=== PATIENT | female | born 1965 | race African-American/Black ===

== ENCOUNTER 2017-08-28 13:08 | Emergency (ER) | payer MEDICARE, MEDICAID ==
[2017-08-28] MEDS ORDERED: hydrALAZINE 20 MG/ML VIAL ONE (14:05)
[2017-08-28] MEDS ORDERED: cloNIDine 0.1 MG TAB ONE (14:06)
--- NOTE | 2017-08-28 15:17 | RAD ---
PORTABLE CHEST 1 VIEW: Date: 08/28/17 Time: 1424 hours HISTORY: Cough. FINDINGS: Comparison made with exam of 02/07/15. The heart size is borderline. There is continued elevation of the right hemidiaphragm. The lungs are well expanded without focal areas of consolidation, pneumothorax, juan francisco pulmonary edema, or pleural e ffusions. A left humeral head prosthesis is present. IMPRESSION: No acute process. POS: [facility]
== END 2017-08-28 16:30 | disposition home or self-care (01) ==
LOC: ERS 13:08
DX: J20.9 Acute bronchitis, unspecified (principal); E11.9 Type 2 diabetes mellitus without complications; K21.9 Gastro-esophageal reflux disease without esophagitis; G47.30 Sleep apnea, unspecified; I25.10 Atherosclerotic heart disease of native coronary artery without angina pectoris; I11.0 Hypertensive heart disease with heart failure; I50.9 Heart failure, unspecified; F32.9 Major depressive disorder, single episode, unspecified
CPT/HCPCS: 71045; 94640; J0360; J7620

== ENCOUNTER 2018-09-05 14:49 | Inpatient (IN) | payer MEDICARE, MEDICAID ==
[~2018-09-05 14:49] MED LIST: ISOVUE-370 76%-LOCM 1 ML ONE
[2018-09-05 15:22] LABS: #Basophils 0.1 thou/uL (0.0-0.2); #Eosinphils 0.1 thou/uL (0.0-0.7); #Lymphocytes 2.8 thou/uL (1.20-3.40); #Monocytes 0.3 thou/uL (0.11-0.59); #Neutrophils 4.5 thou/uL (1.40-6.50); %Basophils 1.8 % (0.0-1.0); %Eosinophils 1.6 % (0.0-10.0); %Lymphocytes 35.6 % (21.0-51.0); %Monocytes 4.3 % (0.0-10.0); %Neutrophils 56.7 % (42.0-75.0); Hemoglobin 12.9 g/dL (12.0-16.0); Mean Corpuscular HGB CONC 32.5 g/dL (32.0-36.0); Mean Corpuscular Hemoglobin 29.1 pg (27.0-31.0); Mean Corpuscular Volume 89.6 fL (78.0-98.0); Mean Platelet Volume 8.1 fL (7.4-10.4); Platelet Count 346 thou/uL (130-400); RBC Distribution Width 12.3 % (11.5-14.5); Red Blood Cell (RBC) Count 4.44 mill/uL (4.20-5.40); White Blood Cell (WBC) Count 7.9 thou/uL (4.8-10.8)
[2018-09-05 15:44] LABS: ALT (SGPT) 19 U/L (8-55); AST (SGOT) 18 U/L (5-34); Albumin 3.9 g/dL (3.5-5.0); Alkaline Phosphatase 94 U/L (40-150); Anion Gap 11 mmol/L (10-20); BUN (Urea Nitrogen) 14 mg/dL (9.8-20.1); Bilirubin, Total 0.4 mg/dL (0.2-1.2); CK (CPK) 302 U/L (29-168); Calc. Creatinine Clearance 0 mL/min (70-130); Calcium 9.8 mg/dL (7.8-10.44); Carbon Dioxide 29 mmol/L (22-29); Chloride 102 mmol/L (98-107); Estimated GFR-MDRD 51; Globulin 4.9 g/dL (2.4-3.5); Glucose 110 mg/dL (70-105); Potassium 3.7 mmol/L (3.5-5.1); Protein, Total 8.8 g/dL (6.0-8.3); Sodium 138 mmol/L (136-145)
[2018-09-05] MEDS ORDERED: Nitroglycerin 0.4 MG TAB 1 EACH ONE ×2 (15:58→16:02)
[2018-09-05] MEDS ORDERED: Furosemide 20 MG/2 ML VIAL ONE (15:58)
[2018-09-05] MEDS ORDERED: Aspirin Chewable 81 MG TAB ONE (15:58)
--- NOTE | 2018-09-05 16:05 | CT ---
NONCONTRAST CT HEAD: 09/05/18 HISTORY: Bilateral blurry vision. COMPARISON: None available. FINDINGS: There is no evidence of a hemorrhage, acute infarction, mass effect, or midline shift. Ventricular sy stem is normal in size, shape and position. The visualized paranasal sinuses and mastoid air cells ar e clear. Calvarial structures are intact. IMPRESSION: No acute intracranial abnormality demonstrated. POS: [facility]
--- NOTE | 2018-09-05 16:07 | RAD ---
PORTABLE AP CHEST X-RAY: 09/05/18 HISTORY: Sharp left sided chest pain, blurry vision, elevated blood pressure. COMPARISON: 08/28/17. FINDINGS: The cardiac silhouette and pulmonary vasculature are within normal limits. The lungs are clear. Vascu lar calcifications seen in the aortic arch. There is partial visualization of a left humeral prosthes is. Right glenohumeral osteoarthropathy is again present. There has been no interval change from the prior exam. IMPRESSION: No acute cardiopulmonary process. POS: [facility]
--- NOTE | 2018-09-05 18:29 | CT ---
CT PULMONARY ANGIOGRAM WITH IV CONTRAST AND 3D POSTPROCESSING 09/05/18 HISTORY: Left sided chest pain, elevated D-dimer. FINDINGS: No filling defects are seen in the pulmonary artery vasculature to suggest pulmonary embolism. No tho racic aortic aneurysm or dissection is seen. No pleural or pericardial effusions are identified. No p neumothoraces, lobar consolidation or lung masses are identified. There are degenerative changes in t he spine. IMPRESSION: No CT evidence of pulmonary embolism. POS: [facility]
--- NOTE | 2018-09-05 18:49 | PDOC.FPRHP ---
- History of Present Illness Chief Complaint: Chest pain History of Present Illness: 52 yo F with PMH of CHF, migraines, DM2, morbid obesity, MARIAA, anxiety, GERD and HTN presents for high blood pressure and sharp substernal chest pain that radiated to her left chest for just a few seconds. Pain started today while she was lying down, she reports she was massaging her chest to help distract the pain, and reports her "face felt funny" for about 5 minutes. She reports she has had SOB for past 4 days, since her clinic visit. Her SOB is worse with lying flat, not improved by her CPAP (which makes her feel claustraphobic), and with exertion. Because of chronic back pain, she has been laying in her bed all day, no recent surgery. She has been recording her blood pressures at home, and they have been elevated up to 211/165, so she decided to come in to the hospital. She has had double vision for past 6 days, states that it has been getting worse over past 6 months. She also complains of swelling in her eyelids that is new, and chronic frontal and temporal headaches with nausea and vomiting x1 that she has had more frequently over the past 3 days. She also states she has eye pain and chronic eye watering lately. She has a family history of CHF in her son, mother, father, and sister; Family history of "blood clot" in mother's leg and her son's arm. Her son of CHF a few years ago, and thinking of him increases her anxiety. In the ED, her BP was elevated to 200s/100s, with pulse in 100s. She received nitrox3, which improved her blood pressure to 130/80. CTA chest neg for PE, EKG normal, trop neg. CXR wnl. She also received lasix as there was concern for CHF , however BNP returned normal. - Allergies/Adverse Reactions Allergies Allergy/AdvReac Type Severity Reaction Status Date / Time No Known Drug Allergies Allergy Verified 09/05/18 19:48 - Home Medications Medication Instructions Recorded Confirmed Type Allopurinol 10 mg PO DAILY 09/05/18 09/05/18 History Amlodipine [Norvasc] 10 mg PO DAILY 09/05/18 09/05/18 History Atorvastatin Calcium 40 mg PO HS 09/05/18 09/05/18 History Carvedilol 37.5 mg PO BID 09/05/18 09/05/18 History Chlorthalidone 50 mg PO DAILY 09/05/18 09/05/18 History Ergocalciferol (Vitamin D2) 1.25 mg PO SEEPHYS 09/05/18 09/05/18 History [Vitamin D2] Esomeprazole Magnesium [Nexium] 40 mg PO QAM-WM 09/05/18 09/05/18 History Gabapentin 600 mg PO TID 09/05/18 09/05/18 History Minoxidil 10 mg PO DAILY 09/05/18 09/05/18 History Spironolactone 50 mg PO DAILY 09/05/18 09/05/18 History Venlafaxine HCl [Effexor XR] 150 mg PO HS 09/05/18 09/05/18 History busPIRone HCl [Buspirone HCl] 15 mg PO TID 09/05/18 09/05/18 History cloNIDine HCl 0.3 mg PO HS 09/05/18 09/05/18 History hydrALAZINE [Apresoline] 25 mg PO TID 09/05/18 09/05/18 History - History PMHx: CHF, migraines, DM2, morbid obesity, MARIAA, depression and anxiety, GERD, sciatica, HTN, CAD, chronic back pain. Stress test in 2017 she reports as normal. PSHx: bilat knee replacements, partial colectomy, appendectomy, diverticulitis, shoulder arthroplasty FHx: kidney failure - son DVT in mother, "blood clot in arm" of son CHF - son, mother, father, sister Social: denies tobacco, alcohol, or drug use Allergies: NKDA - Review of Systems General: reports: fever/chills (reports feeling warm and needing fan at night), weight/appetite/sleep changes (decreased appetite). denies: night sweats Eyes: reports: eye pain, vision changes ENT: denies: nasal congestion, rhinorrhea Respiratory: reports: cough, shortness of breath. denies: congestion Cardiovascular: reports: chest pain, palpitation, orthopnea. denies: edema Gastrointestinal: reports: nausea, vomiting, constipation. denies: diarrhea, abdominal pain, GI bleeding Genitourinary: reports: incontinence, polyuria. denies: dysuria Skin: reports: rashes (no new rashes, but reports dark skin on neck) Musculoskeletal: reports: stiffness (back), arthritis/arthralgias (in her back) Neurological: reports: numbness (rt hand, intermittent). denies: weakness Psychological: reports: anxiety, depression - Vital signs BP: [129/82] HR: [89] RR: [20] Tmax: [98.3] Pox: [95]% on [RA] Wt: [136 kg] - Physical Exam Constitutional: NAD, awake, alert and oriented HEENT: normocephalic and atraumatic, PERRLA, conjunctiva clear, grossly normal hearing, MMM -HEENT: small soft mobile masses bilat on upper eyelids Neck: supple, trachea midline, no LAD, other (cervical LAD) Chest: other (tender to palpation over sternum and left chest) Heart: RRR, normal S1/S2, no murmurs/rubs/gallops Lungs: CTAB, no respiratory distress, good air movement, no rales/rhonchi Abdomen: soft, non-tender, bowel sounds present, no masses/distention Musculoskeletal: normal structure, normal tone -Musculoskeletal: calves tender to palpation bilat Neurological: no focal deficit, CN II-XII intact Skin: no rash/lesions, good turgor Heme/Lymphatic: no unusual bruising or bleeding, no petechia Psychiatric: normal mood and affect, good judgment and insight, intact recent and remote memory FMR H&P: Results - Labs Result Diagrams: 09/05/18 15:03 09/06/18 04:51 Lab results: WBC 7.9 thou/uL (4.8-10.8) 09/05/18 15:03 Hgb 12.9 g/dL (12.0-16.0) 09/05/18 15:03 Hct 39.8 % (36.0-47.0) 09/05/18 15:03 MCV 89.6 fL (78.0-98.0) 09/05/18 15:03 Plt Count 346 thou/uL (130-400) 09/05/18 15:03 Neutrophils % 56.7 % (42.0-75.0) 09/05/18 15:03 Sodium 138 mmol/L (136-145) 09/05/18 15:03 Potassium 3.7 mmol/L (3.5-5.1) 09/05/18 15:03 Chloride 102 mmol/L (98-107) 09/05/18 15:03 Carbon Dioxide 29 mmol/L (22-29) 09/05/18 15:03 BUN 14 mg/dL (9.8-20.1) 09/05/18 15:03 Creatinine 1.31 mg/dL (0.6-1.1) H 09/05/18 15:03 Glucose 110 mg/dL (70-105) H 09/05/18 15:03 Calcium 9.8 mg/dL (7.8-10.44) 09/05/18 15:03 Total Bilirubin 0.4 mg/dL (0.2-1.2) 09/05/18 15:03 AST 18 U/L (5-34) 09/05/18 15:03 ALT 19 U/L (8-55) 09/05/18 15:03 Alkaline Phosphatase 94 U/L (40-150) 09/05/18 15:03 Creatine Kinase 302 U/L (29-168) H 09/05/18 15:03 B-Natriuretic Peptide 13.7 pg/mL (0-100) 09/05/18 15:38 Serum Total Protein 8.8 g/dL (6.0-8.3) H 09/05/18 15:03 Albumin 3.9 g/dL (3.5-5.0) 09/05/18 15:03 - EKG Interpretation EKG: NSR - Radiology Interpretation CT scan - head Status: image reviewed by me, report reviewed by me Additional comment: neg for acute abnormalities Chest x-ray Status: image reviewed by me, report reviewed by me Additional comment: Neg for acute cardiopulmonary process CT scan - chest Status: image reviewed by me, report reviewed by me Additional comment: Negative for PE FMR H&P: A/P - Problem List (1) Atypical chest pain Current Visit: Yes Status: Acute Code(s): R07.89 - OTHER CHEST PAIN (2) LALO (acute kidney injury) Current Visit: Yes Status: Acute Code(s): N17.9 - ACUTE KIDNEY FAILURE, UNSPECIFIED (3) Elevated CK Current Visit: Yes Status: Acute (4) HTN (hypertension) Current Visit: Yes Status: Chronic Code(s): I10 - ESSENTIAL (PRIMARY) HYPERTENSION (5) Hx of chronic heart failure Current Visit: Yes Status: Chronic Code(s): Z86.79 - PERSONAL HISTORY OF OTHER DISEASES OF THE CIRCULATORY SYSTEM (6) DM2 (diabetes mellitus, type 2) Current Visit: Yes Status: Acute (7) Morbid obesity Current Visit: Yes Status: Chronic Code(s): E66.01 - MORBID (SEVERE) OBESITY DUE TO EXCESS CALORIES (8) MARIAA (obstructive sleep apnea) Current Visit: Yes Status: Chronic Code(s): G47.33 - OBSTRUCTIVE SLEEP APNEA (ADULT) (PEDIATRIC) (9) GERD (gastroesophageal reflux disease) Current Visit: Yes Status: Chronic Code(s): K21.9 - GASTRO-ESOPHAGEAL REFLUX DISEASE WITHOUT ESOPHAGITIS (10) CAD (coronary artery disease) Current Visit: Yes Status: Chronic Code(s): I25.10 - ATHSCL HEART DISEASE OF [place] CORONARY ARTERY W/O ANG PCTRS (11) Chronic back pain Current Visit: Yes Status: Chronic Code(s): M54.9 - DORSALGIA, UNSPECIFIED; G89.29 - OTHER CHRONIC PAIN (12) Migraines Current Visit: Yes Status: Chronic Code(s): G43.909 - MIGRAINE, UNSP, NOT INTRACTABLE, WITHOUT STATUS MIGRAINOSUS (13) Depression Current Visit: Yes Status: Chronic Code(s): F32.9 - MAJOR DEPRESSIVE DISORDER, SINGLE EPISODE, UNSPECIFIED (14) Anxiety Current Visit: Yes Status: Chronic Code(s): F41.9 - ANXIETY DISORDER, UNSPECIFIED - Plan 52 yo F with atypical chest pain Atypical Chest pain -ACS vs costochondritis vs anxiety vs GERD vs pickwickian syndrome -Pain is reproducible, Heart score 3 -Does have exertional SOB and orthopnea, consider pickwickian syndrome -CT head normal -CTA chest neg for PE, CXR and EKG normal -Admit to tele obs for stress in the AM. Pt reports normal stress in 2017 but we do not have those records -NPO at midnight -hold beta blockers -TSH -Lipid panel LALO -Cr 1.3 - IVF of 140 LR CK elevated -300s -IVF as above HTN - Her headaches may be 2/2 to her HTN - PRN hydralazine - continue home BP medicines CHF -BNP 13 -No signs of fluid overload -continue home medication DM2 -continue home meds -SSI with ACHS Morbid obesity -consider pickwickian as a possible cause of her SOB MARIAA -cpap at night GERD -famotidine PRN CAD -continue home atorvastatin Chronic back pain and sciatica -aware -Do not give norco at this time Migraines -aware Depression and anxiety Code status: full code DVT ppx: lovenox Dispo: admit to tele obs GI PPx: famotidine PCP: Fransisca FMR H&P: Upper Level - Pertinent history 52AAF p/w chest pain, shortness of breath, and double vision. Reports two episodes of left sided chest pain that was sharp in nature and began while resting. She denies n/v or diaphoresis associated with these episodes, but endorses a flushed feeling all over coinciding with the chest pain. She was worried that she may be having a stroke since her face felt "hot." BP's at home have been grossly elevated so she thought it best to come in and get checked out. She denies any motor deficits or loss in sensation. Patient also c/o SOB, but this does not appear to coincide with her CP. It is exacerbated with lying flat, which she has been doing most of everyday due to pain from spinal stenosis. Also, c/o constant double vision for roughly one week. This is a chronic problem that has never been addressed, per patient. Patient has a supposed history of chronic pain that was previously being treated with [place] by her former PCP. She has been seen in the [facility] twice since the beginning of the year, and reports being told very rudely that we will not be refilling her opiate. She had to be redirected multiple times back to her chief complaint during our interview because she kept talking about [place]. ED: nitro SL x 3, lasix 20mg IV, ASA - Pertinent findings hypertensive to 200/100 that corrected with nitro SL CXR: normal CT brain: negative CTA chest: negative BNP: 13 trop: negative D-Dimer: 1.3 Cr: 1.31 Gen: A&Ox3 CV: RRR, anterior chest wall pain with palpation Pulm: CTA-B Neuro: CNII-XII intact - Plan Date/Time: 09/05/181848 I, Pieter Portillo, have evaluated this patient and agree with findings/plan as outlined by international student counselor resident. Pertinent changes/additions are listed here. Atypical chest pain: admit to tele/obs for stress test in AM. Heart score of 3- 4. Pain controlled with nitro and has not recurred since presenting to ER. EKG is normal at this time. Continue to trend troponins and further risk stratify with FLP and TSH. Hypertension: drastic improvement with 3 doses of SL nitro. Patient endorses taking all of her medications as prescribed. With 4+ anti-hypertensive medications on med list, we will start secondary HTN w/u with bilateral renal artery US. Will try to avoid clonidine for PRN control. LALO: unknown what her baseline is but Cr elevated. Will continue IVF and expect modest rise in creatinine 2/2 to lasix given in ED. Addendum - Attending - Attending Attestation Date/Time: 09/06/18 3252 I personally evaluated the patient and discussed the management with Dr. Portillo/ Kirstin I agree with the History, Examination, Assessment and Plan documented above with any addition or exceptions noted below.Vertical diplopia rec MRI brain include orbit TFT's, need secondary HTN work up and heart disease stratification with stress testing.
[2018-09-05] MEDS ORDERED: Acetaminophen 325 MG TAB PO PRN ×2 (19:37→19:50)
[2018-09-05 19:39] VITALS: BMI 55.9
[2018-09-05] MEDS ORDERED: Calcium Carbonate 500 MG ChewTAB PO PRN (19:50)
[2018-09-05] MEDS ORDERED: Ondansetron PF 4 MG/2 ML Vial IVP PRN (19:50)
[2018-09-05] MEDS ORDERED: Ondansetron ODT 4 MG TAB PO PRN (19:50)
[2018-09-05] MEDS ORDERED: Enoxaparin Sodium 40 MG/0.4 ML SYRINGE SC SCH (20:00)
[2018-09-05] MEDS: Famotidine 20 MG TAB PO SCH (20:28)
[2018-09-05] MEDS ORDERED: Venlafaxine HCl XR 150 MG CAP PO SCH (22:00)
[2018-09-05] MEDS ORDERED: Gabapentin 300 MG CAP PO SCH (22:00)
[2018-09-05] MEDS ORDERED: cloNIDine 0.3 MG TAB PO SCH (22:00)
[2018-09-05] MEDS ORDERED: busPIRone HCl 10 MG TAB PO SCH (22:00)
[2018-09-05] MEDS ORDERED: Atorvastatin Calcium 40 MG TAB PO SCH (22:00)
[2018-09-05] MEDS ORDERED: Carvedilol 25 MG TAB PO SCH (22:00)
[2018-09-05] MEDS ORDERED: hydrALAZINE 20 MG/ML VIAL SLOW IVP PRN (23:36)
[2018-09-05] MEDS ORDERED: HumaLOG 300 UNITS/3 ML VIAL SC PRN (23:41)
[2018-09-05] MEDS ORDERED: Dextrose 5% in Water 1,000 ML IV PRN (23:41)
[2018-09-05] MEDS ORDERED: Dextrose 50% Abboject 50 ML SYRINGE SLOW IVP PRN (23:41)
[2018-09-06] MEDS: Lactated Ringer's 1,000 ML IV SCH ×3 (00:23→17:28)
[2018-09-06] MEDS: hydrOXYzine 25 MG TAB PO SCH ×4 (04:02→23:44)
--- NOTE | 2018-09-06 06:34 | PDOC.FM ---
- Subjective Subjective: Still having blurry vision. Chest pain improved, feels SOB mildly, did not wear CPAP last night. - Objective MAR Reviewed: Yes Vital Signs & Weight: Vital Signs (12 hours) Temp Pulse Resp BP BP Pulse Ox 09/06/18 04:00 97.3 F L 87 17 133/73 94 L 09/06/18 03:36 97.3 F L 87 15 126/77 94 L 09/05/18 23:35 98 F 88 18 113/65 93 L 09/05/18 19:30 98.2 F 82 20 130/70 93 L Weight Weight 138.618 kg I&O: 09/04/18 09/05/18 09/06/18 06:59 06:59 06:59 Intake Total 1400 Balance 1400 Result Diagrams: 09/05/18 15:03 09/06/18 04:51 Phys Exam - Physical Examination Constitutional: NAD obese body habitus HEENT: PERRLA Respiratory: no wheezing, clear to auscultation bilateral Cardiovascular: RRR, no significant murmur Gastrointestinal: soft, non-tender Neurological: non-focal, moves all 4 limbs Psychiatric: A&O x 3 Deviation from normal: anxious Dx/Plan (1) LALO (acute kidney injury) Code(s): N17.9 - ACUTE KIDNEY FAILURE, UNSPECIFIED Status: Acute (2) Atypical chest pain Code(s): R07.89 - OTHER CHEST PAIN Status: Acute (3) DM2 (diabetes mellitus, type 2) Status: Acute (4) Elevated CK Status: Acute (5) Anxiety Code(s): F41.9 - ANXIETY DISORDER, UNSPECIFIED Status: Chronic (6) CAD (coronary artery disease) Code(s): I25.10 - ATHSCL HEART DISEASE OF [place] CORONARY ARTERY W/O ANG PCTRS Status: Chronic (7) HTN (hypertension) Code(s): I10 - ESSENTIAL (PRIMARY) HYPERTENSION Status: Chronic (8) MARIAA (obstructive sleep apnea) Code(s): G47.33 - OBSTRUCTIVE SLEEP APNEA (ADULT) (PEDIATRIC) Status: Chronic - Plan Plan: 52 yo F with atypical chest pain Atypical Chest pain with SOB, ACS rule out -Ddx: ACS vs. chostocondritis vs. pickwickian syndrome vs. anxiety induced vs. hypertensive emergency -Cardiac enzymes negative X3, CTA neg for PE, BNP nml -Heart score 3, NST this morning this AM to rule out ACS -Pt reports normal stress in 2017 but we do not have those records -Pending TSH, lipid panel, Mg, Phos to risk stratify -Continue hypertensives meds LALO vs. CKD -Cr 1.3, baseline undetermined -mIVF of 140 LR CK elevated -300s -IVF as above -pending AM CPK HTN - Her headaches may be 2/2 to her HTN - PRN hydralazine - continue home BP medicines CHF -BNP 13 -No signs of fluid overload -continue home medication DM2 -continue home meds -SSI with ACHS Morbid obesity -consider pickwickian as a possible cause of her SOB MARIAA -cpap at night GERD -famotidine PRN CAD -continue home atorvastatin Chronic back pain and sciatica -aware -Do not give norco at this time Migraines -aware Depression and anxiety -home buspar and venlafaxine Code status: full code DVT ppx: lovenox GI PPx: famotidine Dispo: Chest pain-NST to r/o ACS, Eccho. Diplopia- MRI brain, ESR, RPR, HIV. LALO -likely from overdiuresis, recheck AM BMP. After NST oral rehydration to help with LALO, no fluids for now due to heart failure. Monitor fluid status, can give IV lasix PRN. Addendum - Attending - Attending Attestation Date/Time: 09/07/18 0297 I personally evaluated the patient and discussed the management with Dr. I agree with the History, Examination, Assessment and Plan documented above with any addition or exceptions noted below.
[2018-09-06 06:40] LABS: Anion Gap 11 mmol/L (10-20); BUN (Urea Nitrogen) 15 mg/dL (9.8-20.1); Calc. Creatinine Clearance 105 mL/min (70-130); Calcium 9.8 mg/dL (7.8-10.44); Carbon Dioxide 30 mmol/L (22-29); Cardiac Risk 5.4 (Less than 4.5); Chloride 102 mmol/L (98-107); Cholesterol 172 mg/dl (< 200 Desired); Estimated GFR-MDRD 50; Glucose 95 mg/dL (70-105); HDL Cholesterol 32 mg/dL (>60 Neg Risk); LDL Cholesterol, Calculated 105 mg/dL; Potassium 3.6 mmol/L (3.5-5.1); Sodium 139 mmol/L (136-145); Triglycerides 173 mg/dL (Less than 150)
[2018-09-06 06:52] LABS: Hemoglobin A1c 5.7 % (4.0-6.0)
[2018-09-06] MEDS ORDERED: busPIRone HCl 10 MG TAB PO SCH (09:00)
[2018-09-06] MEDS ORDERED: Minoxidil 10 MG TAB PO SCH (09:00)
[2018-09-06] MEDS ORDERED: Gabapentin 300 MG CAP PO SCH (09:00)
[2018-09-06] MEDS ORDERED: Carvedilol 25 MG TAB PO SCH (09:00)
[2018-09-06] MEDS: Famotidine 20 MG TAB PO SCH ×2 (09:13→21:08)
[2018-09-06] MEDS: Spironolactone 25 MG TAB PO SCH (09:13)
[2018-09-06] MEDS: Amlodipine 10 MG TAB PO SCH (09:13)
[2018-09-06] MEDS: Gabapentin 300 MG CAP PO SCH ×3 (09:13→21:07)
[2018-09-06] MEDS: hydrALAZINE 25 MG TAB PO SCH ×3 (09:14→21:07)
[2018-09-06] MEDS: busPIRone HCl 5 MG TAB PO SCH ×3 (09:14→21:06)
[2018-09-06] MEDS: Allopurinol 100 MG TAB PO SCH (09:14)
[2018-09-06] MEDS: Enoxaparin Sodium 40 MG/0.4 ML SYRINGE SC SCH (09:15)
--- NOTE | 2018-09-06 09:52 | ULT ---
RENAL SONOGRAM WITH RENAL ARTERY DOPPLER EVALUATION: Date: 09/06/18 HISTORY: Uncontrolled hypertension. FINDINGS: Kidneys demonstrate a normal sonographic appearance bilaterally without evidence of hydronephrosis, m ass, or renal calculus. No renal cortical thinning is identified. The right kidney measures 10.0 cm x 4.4 cm. The left kidney measures 10.3 cm x 5.6 cm. The urinary bladder demonstrates a normal sonographic appearance. RENAL ARTERY DOPPLER EVALUATION WITH SPECTRAL ANALYSIS AND COLOR FLOW EVALUATION: The peak systolic velocity in the right renal artery is 45.3 cm/sec and in the left renal artery is 6 7.8 cm/sec, with a peak systolic velocity in the abdominal aorta of 66.1 cm/sec. The right renal artery:aorta ratio is 0.69, and on the left, the renal artery:aorta ratio is 1.03. A normal renal artery:aorta ratio is less than 3. Resistive index in right arcuate artery is 0.6, with resistive index in left renal arcuate artery of 0.59. Normal resistive indices are less than 0.7. IMPRESSION: 1. Normal appearing bilateral kidneys without evidence of hydronephrosis or renal cortical thinning. 2. Normal renal artery:aorta ratios, as well as normal resistive indices in the arcuate arteries jessica aterally. POS: [facility]
[2018-09-06 12:22] LABS: Syphilis Antibody Nonreactive (Nonreactive); Syphilis Antibody Index 0.06 S/CO (<1.00 Non-Reactive)
[2018-09-06 12:33] LABS: HIV (1/2) Antibody/Antigen Non-Reactive (NonReactive); HIV 1/2 INDEX 0.08 S/CO (<1.00)
[2018-09-06] MEDS ORDERED: cloNIDine 0.3 MG TAB PO SCH (21:00)
[2018-09-06] MEDS ORDERED: Atorvastatin Calcium 40 MG TAB PO SCH (21:00)
[2018-09-06] MEDS ORDERED: Venlafaxine HCl XR 150 MG CAP PO SCH (21:00)
[2018-09-06] MEDS: cloNIDine 0.3 MG TAB PO SCH (21:06)
[2018-09-06] MEDS: Atorvastatin Calcium 40 MG TAB PO SCH (21:08)
[2018-09-06] MEDS: Venlafaxine HCl XR 150 MG CAP PO SCH (21:08)
--- NOTE | 2018-09-06 22:14 | PDOC.EVN ---
Event Note - Event Note Event Note: residents page to come to pts room at approximately 2100 09/06 for questions by family member family member said she had some concerns about the care the pt is receiving here. including why she was started on 4-5 blood pressure medicines in the outpatient setting, what is going on with her heart, and why we are getting an MRI of the brain for diplopia when her major concern is her heart. Family member reports that there is a family hx of a "coronary artery fistula" for which she believes may be the cause of pts symptoms. It was conveyed that the medicine team is doing a full work up to evaluate for coronary ischemia, potential structural or ischemic defects in the brain causing diplopia, and that her kidneys have been evaluated via US, results reported. family member continued to be dissatisfied with answers and questioned care being received. asked for medical records of pt. She was informed she could speak with medical records regarding this when they opened in the morning.
[2018-09-06] MEDS ORDERED: Lactated Ringer's 1,000 ML IV SCH (22:28)
[2018-09-06 22:49] LABS: Bilirubin Negative (Negative); Blood, Urine Small (Negative); Clarity CLEAR (Clear); Glucose, Urine (Dipstick) Negative (Negative); Leukocyte Negative (Negative); Nitrite Negative (Negative); Protein, Urine (Dipstick) Negative (Neg-Trace); Specific Gravity, Urine 1.007 (1.002-1.036); pH, Urine 7.5 (5.0-9.0)
[2018-09-06] MEDS ORDERED: Preparation H HC 1% Cream 26 GM TUBE TOP PRN (22:49)
[2018-09-06 22:51] LABS: Bacteria/HPF None Seen HPF (None Seen); Hyaline Casts/LPF 0-3 HYALINE CAST LPF (0-3 Hyaline); Pathc Cast-AUWi Flag 0.29 (0-2.49); Squamous Epithelial 0-3 HPF (0-3); WBC/HPF 0-3 HPF (0-3)
[2018-09-06 22:52] LABS: Urine Culture Reflex No No
[2018-09-07 05:23] LABS: #Eosinphils 0.2 thou/uL (0.0-0.7); #Lymphocytes 2.1 thou/uL (1.20-3.40); #Monocytes 0.6 thou/uL (0.11-0.59); #Neutrophils 3.2 thou/uL (1.40-6.50); %Basophils 0.5 % (0.0-1.0); %Eosinophils 2.7 % (0.0-10.0); %Lymphocytes 34.6 % (21.0-51.0); %Neutrophils 52.3 % (42.0-75.0); Hemoglobin 12.7 g/dL (12.0-16.0); Mean Corpuscular HGB CONC 32.5 g/dL (32.0-36.0); Mean Corpuscular Hemoglobin 29.4 pg (27.0-31.0); Mean Corpuscular Volume 90.6 fL (78.0-98.0); Mean Platelet Volume 8.2 fL (7.4-10.4); Platelet Count 334 thou/uL (130-400); RBC Distribution Width 12.4 % (11.5-14.5); Red Blood Cell (RBC) Count 4.32 mill/uL (4.20-5.40); White Blood Cell (WBC) Count 6.1 thou/uL (4.8-10.8)
[2018-09-07 05:41] LABS: ALT (SGPT) 22 U/L (8-55); AST (SGOT) 21 U/L (5-34); Albumin 3.7 g/dL (3.5-5.0); Alkaline Phosphatase 101 U/L (40-150); Anion Gap 13 mmol/L (10-20); BUN (Urea Nitrogen) 15 mg/dL (9.8-20.1); Bilirubin, Total 0.4 mg/dL (0.2-1.2); Calc. Creatinine Clearance 103 mL/min (70-130); Calcium 9.7 mg/dL (7.8-10.44); Carbon Dioxide 28 mmol/L (22-29); Chloride 102 mmol/L (98-107); Estimated GFR-MDRD 50; Globulin 4.6 g/dL (2.4-3.5); Glucose 104 mg/dL (70-105); Potassium 3.8 mmol/L (3.5-5.1); Protein, Total 8.3 g/dL (6.0-8.3); Sodium 139 mmol/L (136-145)
[2018-09-07] MEDS: hydrOXYzine 25 MG TAB PO SCH ×4 (05:41→23:33)
--- NOTE | 2018-09-07 06:32 | PDOC.FM ---
- Subjective Subjective: Denies chest pain since admission. Endorses family hx of early ID's including her son at 28 years old and family history of cardio fistula?? She denies any blurry vision this morning. She refused the MRI if she has to be awake because she gets anxious/claustrophobic. - Objective MAR Reviewed: Yes Vital Signs & Weight: Vital Signs (12 hours) Temp Pulse Resp BP BP Pulse Ox 09/07/18 03:35 98.4 F 91 20 135/74 94 L 09/06/18 23:45 98.1 F 88 16 154/79 H 95 09/06/18 21:07 85 147/70 H 09/06/18 21:06 147/70 H 09/06/18 19:13 97.8 F 85 16 130/70 93 L Weight Weight 135.533 kg I&O: 09/05/18 09/06/18 09/07/18 06:59 06:59 06:59 Intake Total 1400 900 Output Total 300 Balance 1400 600 Result Diagrams: 09/07/18 04:34 09/07/18 04:34 Phys Exam - Physical Examination Constitutional: NAD Respiratory: no wheezing, no rales, clear to auscultation bilateral Cardiovascular: RRR, no significant murmur Gastrointestinal: soft, non-tender, no distention Musculoskeletal: no edema, pulses present Neurological: non-focal, normal sensation, moves all 4 limbs Psychiatric: normal affect, A&O x 3 Skin: no rash, normal turgor, cap refill <2 seconds Dx/Plan (1) Atypical chest pain Code(s): R07.89 - OTHER CHEST PAIN Status: Acute (2) LALO (acute kidney injury) Code(s): N17.9 - ACUTE KIDNEY FAILURE, UNSPECIFIED Status: Acute (3) DM2 (diabetes mellitus, type 2) Status: Chronic (4) Elevated CK Status: Acute (5) Anxiety Code(s): F41.9 - ANXIETY DISORDER, UNSPECIFIED Status: Chronic (6) CAD (coronary artery disease) Code(s): I25.10 - ATHSCL HEART DISEASE OF [place] CORONARY ARTERY W/O ANG PCTRS Status: Chronic (7) Chronic back pain Code(s): M54.9 - DORSALGIA, UNSPECIFIED; G89.29 - OTHER CHRONIC PAIN Status: Chronic (8) Depression Code(s): F32.9 - MAJOR DEPRESSIVE DISORDER, SINGLE EPISODE, UNSPECIFIED Status : Chronic (9) GERD (gastroesophageal reflux disease) Code(s): K21.9 - GASTRO-ESOPHAGEAL REFLUX DISEASE WITHOUT ESOPHAGITIS Status: Chronic (10) HTN (hypertension) Code(s): I10 - ESSENTIAL (PRIMARY) HYPERTENSION Status: Chronic (11) Hx of chronic heart failure Code(s): Z86.79 - PERSONAL HISTORY OF OTHER DISEASES OF THE CIRCULATORY SYSTEM Status: Chronic (12) Migraines Code(s): G43.909 - MIGRAINE, UNSP, NOT INTRACTABLE, WITHOUT STATUS MIGRAINOSUS Status: Chronic (13) Morbid obesity Code(s): E66.01 - MORBID (SEVERE) OBESITY DUE TO EXCESS CALORIES Status: Chronic (14) MARIAA (obstructive sleep apnea) Code(s): G47.33 - OBSTRUCTIVE SLEEP APNEA (ADULT) (PEDIATRIC) Status: Chronic - Plan Plan: 52 yo F admitted for atypical chest pain. Atypical Chest pain with SOB, ACS rule out -Ddx: ACS vs. chostocondritis -Cardiac enzymes negative X3, CTA neg for PE, BNP nml, EKG wnl -Heart score 3, NST pending -Pt reports normal stress in 2017 but we do not have those records -TSH wnl, ascvd risk 9.4%, will increase atorvastatin to 80mg daily Blurry vision- -resolved this morning -no neuro focal deficits, will hold off on MRI as pt does not want it without anesthesia and sx have resolved; blurry vision could have been due to hypertension or hyperglycemia, CT brain negative for acute process LALO vs. CKD -Cr 1.3, baseline undetermined -mIVF of 140 LR CK elevated -300s -IVF as above -pending AM CPK HTN - PRN hydralazine - continue home BP medicines CHF -BNP 13 -No signs of fluid overload -continue home medication DM2 -continue home meds -SSI with ACHS Morbid obesity -consider pickwickian as a possible cause of her SOB MARIAA -cpap at night GERD -famotidine PRN CAD -continue home atorvastatin Chronic back pain and sciatica -aware -Do not give norco at this time Migraines -aware Depression and anxiety -home buspar and venlafaxine Code status: full code DVT ppx: lovenox GI PPx: famotidine Dispo: pending stress test, ok to dc if wnl Addendum - Attending - Attending Attestation Date/Time: 09/07/18 4250 I personally evaluated the patient and discussed the management with Dr. Jurado I agree with the History, Examination, Assessment and Plan documented above with any addition or exceptions noted below. 52 yo female with multiple medical problems and significant family history presents for evaluation of chest pain. HD#2 Patient now without compliants. Chest pain has resolved. No vision changes. VS reviewed. Imaging reviewed. Labs reviewed. NAD. RRR. No murmurs. CTAB. No wheezing, crackles 1. Chest pain: Risk for cardiovascular etiology. Significant risk factors along with significant family history. Stress this AM. Awaiting results. ASA, beta marely, statin. Adjust home meds as needed. CPAP to continue when sleeping or napping and as needed. Vikas
[2018-09-07 07:00] LABS: Magnesium 1.6 mg/dL (1.6-2.6)
[2018-09-07 07:04] LABS: Phosphorus 4.6 mg/dL (2.3-4.7)
[2018-09-07] MEDS: Lactated Ringer's 1,000 ML IV SCH (07:52)
--- NOTE | 2018-09-07 08:36 | STRESS ---
Acquisition Time: 2018-09-06 11:51:31 Total Exercise Time: 00:04:00 Test Indications: CHEST PAIN Medications: Protocol: ADENOSINE Max HR: 123 BPM 74% of Pred: 166 BPM Max BP: 128/070 mmHG Max Work Load: 1.0 METS RESTING ECG: NORMAL SINUS RHYTHM AT 82 BPM SYMPTOMS: CHEST PAIN, FLORES, NAUSEA, HEADACHE APPROPRIATE BP RESPONSE FOR ADENOSINE ECTOPY: NONE ECG STRESS: NO SIGNIFICANT CHANGES INTERPRETATION: AWAIT NUCLEAR IMAGES FOR DEFINITIVE DIAGNOSIS Confirmed by XENIA VEGA ([id number]) on 09/07/2018 8:36:01 AM Referred By: Confirmed By:XENIA VEGA
[2018-09-07] MEDS: Allopurinol 100 MG TAB PO SCH (08:54)
[2018-09-07] MEDS: Spironolactone 25 MG TAB PO SCH (08:54)
[2018-09-07] MEDS: Amlodipine 10 MG TAB PO SCH (08:54)
[2018-09-07] MEDS: Famotidine 20 MG TAB PO SCH ×2 (08:55→21:16)
[2018-09-07] MEDS: Enoxaparin Sodium 40 MG/0.4 ML SYRINGE SC SCH (08:55)
[2018-09-07] MEDS: busPIRone HCl 5 MG TAB PO SCH ×3 (08:55→21:16)
[2018-09-07] MEDS: Gabapentin 300 MG CAP PO SCH ×3 (08:56→21:15)
[2018-09-07] MEDS: Minoxidil 10 MG TAB PO SCH (08:56)
[2018-09-07] MEDS: hydrALAZINE 25 MG TAB PO SCH ×3 (08:56→21:14)
[2018-09-07] MEDS ORDERED: Ergocalciferol 1.25 MG(50,000 UNITS) CAP PO SCH (09:00)
--- NOTE | 2018-09-07 15:19 | NM ---
CARDIAC SPECT: CLINICAL HISTORY: 52-year-old female with chest pain, hypertension, and CHF. TECHNIQUE: A myocardial perfusion scan was performed using the single isotope two day protocol with 32 mCi techn etium-99m sestamibi injected intravenously for both stress and rest images. Pharmacologic stress with Adenosine was monitored and interpreted by Dr. Christian. FINDINGS: Fairly homogeneous tracer distribution is seen in the myocardial segments on the rest images. The str ess images demonstrate mildly decreased tracer localization in the proximal inferolateral wall. GATED SPECT LVEF: 69%. WALL MOTION EXAM: Normal. IMPRESSION: Findings are suggestive of mild ischemia in the proximal inferolateral wall with complete reversibili ty. POS: TREVOR
[2018-09-07] MEDS ORDERED: Nitroglycerin 0.4 MG TAB (25 Tab Bottle) SL PRN (19:15)
[2018-09-07 20:02] LABS: Troponin I 0.016 ng/mL (< 0.028)
[2018-09-07] MEDS: Atorvastatin Calcium 40 MG TAB PO SCH ×2 (21:15→21:33)
[2018-09-07] MEDS: cloNIDine 0.3 MG TAB PO SCH (21:16)
[2018-09-07] MEDS: Venlafaxine HCl XR 150 MG CAP PO SCH (21:16)
[2018-09-08] MEDS: hydrOXYzine 25 MG TAB PO SCH ×3 (06:00→17:50)
[2018-09-08 06:15] LABS: Magnesium 1.6 mg/dL (1.6-2.6); Phosphorus 4.2 mg/dL (2.3-4.7)
--- NOTE | 2018-09-08 06:55 | PDOC.FM ---
- Subjective Subjective: Endorsed one episode of chest pain last night, but it resolved within a few minutes. She is anxious about the fact that her stress was abnormal. - Objective MAR Reviewed: Yes Vital Signs & Weight: Vital Signs (12 hours) Temp Pulse Resp BP BP Pulse Ox 09/08/18 06:27 95 09/08/18 03:38 96.1 F L 101 H 16 135/76 95 09/07/18 23:33 96 20 134/84 93 L 09/07/18 21:16 190/88 H 09/07/18 21:15 104 H 22 H 190/88 H 95 09/07/18 21:14 104 H 190/88 H 09/07/18 20:15 93 L 09/07/18 19:46 104 H 20 112/64 93 L 09/07/18 19:41 104 H 136/83 09/07/18 19:28 98.4 F 101 H 16 135/91 H 91 L Weight Weight 131.27 kg I&O: 09/06/18 09/07/18 09/08/18 06:59 06:59 06:59 Intake Total 1400 1620 1140 Output Total 300 Balance 1400 1320 1140 Result Diagrams: 09/07/18 04:34 09/09/18 05:59 Phys Exam - Physical Examination Constitutional: NAD HEENT: PERRLA, moist MMs Respiratory: no wheezing, no rales, clear to auscultation bilateral Cardiovascular: RRR, no significant murmur Gastrointestinal: soft, non-tender, no distention Musculoskeletal: no edema, pulses present Neurological: non-focal, normal sensation Psychiatric: normal affect, A&O x 3 Skin: no rash Dx/Plan (1) Atypical chest pain Code(s): R07.89 - OTHER CHEST PAIN Status: Acute (2) LALO (acute kidney injury) Code(s): N17.9 - ACUTE KIDNEY FAILURE, UNSPECIFIED Status: Acute (3) DM2 (diabetes mellitus, type 2) Status: Chronic (4) Elevated CK Status: Acute (5) Anxiety Code(s): F41.9 - ANXIETY DISORDER, UNSPECIFIED Status: Chronic (6) CAD (coronary artery disease) Code(s): I25.10 - ATHSCL HEART DISEASE OF [place] CORONARY ARTERY W/O ANG PCTRS Status: Chronic (7) Chronic back pain Code(s): M54.9 - DORSALGIA, UNSPECIFIED; G89.29 - OTHER CHRONIC PAIN Status: Chronic (8) Depression Code(s): F32.9 - MAJOR DEPRESSIVE DISORDER, SINGLE EPISODE, UNSPECIFIED Status : Chronic (9) GERD (gastroesophageal reflux disease) Code(s): K21.9 - GASTRO-ESOPHAGEAL REFLUX DISEASE WITHOUT ESOPHAGITIS Status: Chronic (10) HTN (hypertension) Code(s): I10 - ESSENTIAL (PRIMARY) HYPERTENSION Status: Chronic (11) Hx of chronic heart failure Code(s): Z86.79 - PERSONAL HISTORY OF OTHER DISEASES OF THE CIRCULATORY SYSTEM Status: Chronic (12) Migraines Code(s): G43.909 - MIGRAINE, UNSP, NOT INTRACTABLE, WITHOUT STATUS MIGRAINOSUS Status: Chronic (13) Morbid obesity Code(s): E66.01 - MORBID (SEVERE) OBESITY DUE TO EXCESS CALORIES Status: Chronic (14) MARIAA (obstructive sleep apnea) Code(s): G47.33 - OBSTRUCTIVE SLEEP APNEA (ADULT) (PEDIATRIC) Status: Chronic - Plan Plan: 52 yo F admitted for atypical chest pain. Atypical Chest pain -stress test with reversible ischemia -Heart score 3, NST showed reversible ischemia -TSH wnl, ascvd risk 9.4%, will increase atorvastatin to 80mg daily -NPO since midnight, cards consulted, appreciate recommendations Left calf tenderness, swelling- -will order US -increased lovenox dose d/t bmi Blurry vision- -endorsed vertical diplopia this morning, recommend optho outpatient, CT head negative -no neuro focal deficits, will hold off on MRI as pt does not want it without anesthesia LALO vs. CKD -Cr 1.3, baseline undetermined HTN - PRN hydralazine - continue home BP medicines CHF -BNP 13 -No signs of fluid overload -continue home medication DM2 -continue home meds -SSI with ACHS Morbid obesity -consider pickwickian as a possible cause of her SOB MARIAA -cpap at night GERD -famotidine PRN CAD -continue home atorvastatin Chronic back pain and sciatica -aware -Do not give norco at this time Migraines -aware Depression and anxiety -home buspar and venlafaxine Code status: full code DVT ppx: lovenox GI PPx: famotidine Addendum - Attending - Attending Attestation Date/Time: 09/08/18 0182 I personally evaluated the patient and discussed the management with Dr. Jurado I agree with the History, Examination, Assessment and Plan documented above with any addition or exceptions noted below. 52 yo female with multiple medical problems and significant family history presents for evaluation of chest pain. HD#3 Return of chest pain last night. Asymptomatic this morning. Would like to proceed with cath today. VS reviewed. Imaging reviewed. Labs reviewed. NAD. RRR. No murmurs. CTAB. No wheezing, crackles 1. Chest pain: Abnormal stress test. Risk for cardiovascular etiology due to chronic medical conditions. Along with significant family history. ASA, beta marely, statin. Cards consulted today. Adjust home meds as needed. Review MAR. Replace electrolytes. CPAP to continue when sleeping or napping and as needed. Vikas
[2018-09-08 07:40] LABS: Anion Gap 12 mmol/L (10-20); BUN (Urea Nitrogen) 16 mg/dL (9.8-20.1); Calc. Creatinine Clearance 97 mL/min (70-130); Calcium 10.2 mg/dL (7.8-10.44); Carbon Dioxide 32 mmol/L (22-29); Chloride 100 mmol/L (98-107); Estimated GFR-MDRD 48; Glucose 105 mg/dL (70-105); Potassium 3.7 mmol/L (3.5-5.1); Sodium 140 mmol/L (136-145)
[2018-09-08] MEDS: Allopurinol 100 MG TAB PO SCH (09:15)
[2018-09-08] MEDS: Famotidine 20 MG TAB PO SCH ×2 (09:16→20:46)
[2018-09-08] MEDS: Amlodipine 10 MG TAB PO SCH (09:16)
[2018-09-08] MEDS: Minoxidil 10 MG TAB PO SCH (09:16)
[2018-09-08] MEDS: Gabapentin 300 MG CAP PO SCH ×3 (09:16→20:46)
[2018-09-08] MEDS: hydrALAZINE 25 MG TAB PO SCH ×3 (09:16→20:47)
[2018-09-08] MEDS: Spironolactone 25 MG TAB PO SCH (09:17)
[2018-09-08] MEDS: busPIRone HCl 5 MG TAB PO SCH ×3 (09:17→20:47)
[2018-09-08] MEDS: Enoxaparin Sodium 40 MG/0.4 ML SYRINGE SC SCH (09:17)
[2018-09-08] MEDS ORDERED: Iopamidol 370 76% 100 ML VIAL ONE (09:51)
[2018-09-08] MEDS ORDERED: Enoxaparin Sodium 40 MG/0.4 ML SYRINGE SC SCH (11:30)
[2018-09-08] MEDS: Sodium Chloride 0.9% 1,000 ML IV SCH ×4 (12:30→20:51)
[2018-09-08] MEDS ORDERED: Communication Order-Pharmacy FS SCH (12:30)
[2018-09-08] MEDS ORDERED: Verapamil 5 MG/2 ML VIAL ONE (13:20)
[2018-09-08] MEDS ORDERED: Heparin 10,000 UNITS/1 ML VIAL ONE (13:20)
[2018-09-08] MEDS ORDERED: Nitroglycerin 100MG/250ML BOT 250 ML ONE (13:20)
[2018-09-08] MEDS ORDERED: Midazolam HCl 2 mg/2 ml Vial ONE (13:22)
[2018-09-08] MEDS ORDERED: Fentanyl 100 MCG/2 ML VIAL ONE (13:22)
--- NOTE | 2018-09-08 14:03 | CON ---
DATE OF CONSULTATION: REASON FOR CONSULTATION: Abnormal stress study and chest pain. HISTORY OF PRESENT ILLNESS: Ms. Martinez is a 52-year-old woman with no previous history of underlying coronary artery disease. She recently presented with chest pain. The pain lasts for seconds to minutes. No ameliorating or exacerbating factors present. She is diabetic and hypertensive. Her blood pressure was markedly elevated. Her recent stress study did suggest mild ischemia present in the proximal inferolateral wall with LVEF of 69%. PAST MEDICAL HISTORY: Migraine headaches, morbid obesity, obstructive sleep apnea, depression, anxiety, and acid reflux. FAMILY HISTORY: CAD. SOCIAL HISTORY: No current tobacco or alcohol use. ALLERGIES: NONE. REVIEW OF SYSTEMS: A 10-point review of systems is reviewed and as above, otherwise negative. PHYSICAL EXAMINATION: GENERAL: The patient is a pleasant 52-year-old woman, who is in no acute distress. The patient appears her stated age. VITAL SIGNS: Blood pressure 142/71, pulse 100, respirations 20. NEUROLOGIC: The patient is alert and oriented x3 with no focal neurologic deficits. HEENT: Sclerae without icterus. Mouth has moist mucous membranes with normal pallor. NECK: No JVD. Carotid upstroke brisk. No bruits bilaterally. LUNGS: Clear to auscultation with unlabored respirations. BACK: No scoliosis or kyphosis. CARDIAC: Regular rate and rhythm with normal S1 and S2. No S3 or S4 noted. No significant rubs, murmurs, thrills, or gallops noted throughout the precordium. PMI is not displaced. There is no parasternal heave. ABDOMEN: Soft, nontender, nondistended. No peritoneal signs present. No hepatosplenomegaly. No abnormal striae. EXTREMITIES: 2+ femoral and 2+ dorsalis pedis pulses. No cyanosis, clubbing, or edema. SKIN: No gross abnormalities. PERTINENT LABORATORY DATA: Hemoglobin 12.7. Creatinine 1.38 with a creatinine clearance of 96. IMPRESSION: 1. Abnormal stress study. 2. Atypical chest pain. 3. Risk factors for underlying coronary artery disease. RECOMMENDATIONS: I discussed a more conservative approach with Ms. Martinez. She states she is not going to take a medicine. Given previous history of underlying coronary artery disease in her family, she would like to proceed with a more aggressive approach. So, I discussed coronary angiography in full detail with Ms. Martinez. Risks included, but not limited to the following: , stroke, [place], need for emergency surgery, loss of limb, bleeding, and infection, as well as a reaction to the dye causing kidney failure and needing long-term dialysis. I also discussed the risks of PCI to include all of the above including coronary dissection and perforation in addition to acute stent thrombosis and restenosis. All questions were answered. We will proceed with a bare-metal stent if needed. All other questions were answered. Given the above, the patient agreed to proceed with the above procedure. Job ID: [id number]
--- NOTE | 2018-09-08 14:28 | ULT ---
LEFT LOWER EXTREMITY VENOUS DOPPLER: HISTORY: Tenderness and swelling and tachycardia. COMPARISON: None. FINDINGS: Real-time, langford scale, color Doppler, and spectral analysis of the left lower extremity venous system was performed. The common femoral, femoral, proximal portion, greater saphenous, and deep femoral v eins, as well as the popliteal, and posterior tibial veins are interrogated. Low-grade edema. Normal flow, augmentation, and compression. IMPRESSION: No deep vein thrombosis. POS: TPC
[2018-09-08] MEDS ORDERED: Nitroglycerin 4.9 GM Bottle ONE (14:48)
[2018-09-08] MEDS ORDERED: Acetaminophen/Codeine 30-300mg Tablet PO PRN ×2 (14:57)
[2018-09-08] MEDS ORDERED: Nitroglycerin 0.4 MG TAB (25 Tab Bottle) SL PRN (14:57)
[2018-09-08] MEDS ORDERED: Sodium Chloride 0.9% 200 ML IV PRN (14:57)
--- NOTE | 2018-09-08 15:58 | PQF ---
CLINICAL DOCUMENTATION IMPROVEMENT CLARIFICATION FORM: ICD-10 Updated PLEASE DO AN ADDENDUM TO THE PROGRESS NOTE WITH ANY DOCUMENTATION UPDATES OR ADDITIONS AND CARRY THROUGH TO DC SUMMARY. THANK YOU. DATE: 09/08/18 ATTN : DR. IBRAHIM Please exercise your independent, professional judgment in responding to the clarification form. Clinical indicators are provided on the bottom of this form for your review Please check appropriate box(s): HEART FAILURE: A. TYPE: [ ] Systolic / HFrEF [ ] Diastolic / HFpEF [ ] Combined Systolic / Diastolic [ ] Other diagnosis [x ] Unable to determine In addition, please specify: Present on Admission (POA): [ ] Yes [ ] No [ x ] Unable to determine For continuity of documentation, please document condition throughout progress notes and discharge summary. Thank You. CLINICAL INDICATORS - SIGNS / SYMPTOMS / LABS H&P: "HX OF CHRONIC HEART FAILURE" ECHOCARDIOGRAM: "EJECTION FRACTION IS VISUALLY ESTIMATED AT 60-65%" RISKS: HYPERTENSION H/O HEART FAILURE TREATMENT: CARDIOLOGY CONSULT TELEMETRY MONITORING ECHOCARDIOGRAM LASIX IV (ER) GERRY (09/06-PRESENT) (This form is maintained as a part of the permanent medical record) 2014 [employer]. All Rights Reserved SIDNEY [email or web address] Office: [phone] [facility]
[2018-09-08] MEDS: Atorvastatin Calcium 40 MG TAB PO SCH (20:46)
[2018-09-08] MEDS: cloNIDine 0.3 MG TAB PO SCH (20:46)
[2018-09-08] MEDS: Venlafaxine HCl XR 150 MG CAP PO SCH (20:47)
[2018-09-09] MEDS: hydrOXYzine 25 MG TAB PO SCH ×3 (00:01→13:29)
[2018-09-09 06:44] LABS: Anion Gap 12 mmol/L (10-20); BUN (Urea Nitrogen) 15 mg/dL (9.8-20.1); Calc. Creatinine Clearance 105 mL/min (70-130); Carbon Dioxide 31 mmol/L (22-29); Chloride 99 mmol/L (98-107); Estimated GFR-MDRD 53; Glucose 104 mg/dL (70-105); Potassium 3.6 mmol/L (3.5-5.1); Sodium 138 mmol/L (136-145)
--- NOTE | 2018-09-09 07:11 | PDOC.FM ---
- Subjective Subjective: Endorses mild tension headache and persistent monocular diplopia. Denies chest pain. Cath neg. yesterday. - Objective Vital Signs & Weight: Vital Signs (12 hours) Temp Pulse Resp BP BP Pulse Ox 09/09/18 03:55 98.1 F 105 H 20 127/81 94 L 09/08/18 23:40 96.4 F L 93 18 123/69 94 L 09/08/18 20:47 100 09/08/18 20:46 131/87 09/08/18 20:45 96.8 F L 106 H 21 H 131/87 96 09/08/18 19:33 96 Weight Weight 131.27 kg I&O: 09/08/18 09/09/18 09/10/18 06:59 06:59 06:59 Intake Total 1140 Balance 1140 Result Diagrams: 09/07/18 04:34 09/09/18 05:59 Phys Exam - Physical Examination Constitutional: NAD HEENT: PERRLA, moist MMs Respiratory: no wheezing, no rales, no rhonchi, clear to auscultation bilateral Cardiovascular: RRR, no significant murmur Gastrointestinal: soft, non-tender Musculoskeletal: no edema, pulses present Neurological: non-focal, normal sensation Psychiatric: normal affect, A&O x 3 Skin: no rash, cap refill <2 seconds Dx/Plan (1) Atypical chest pain Code(s): R07.89 - OTHER CHEST PAIN Status: Acute (2) LALO (acute kidney injury) Code(s): N17.9 - ACUTE KIDNEY FAILURE, UNSPECIFIED Status: Acute (3) DM2 (diabetes mellitus, type 2) Status: Chronic (4) Elevated CK Status: Acute (5) Anxiety Code(s): F41.9 - ANXIETY DISORDER, UNSPECIFIED Status: Chronic (6) CAD (coronary artery disease) Code(s): I25.10 - ATHSCL HEART DISEASE OF [place] CORONARY ARTERY W/O ANG PCTRS Status: Chronic (7) Chronic back pain Code(s): M54.9 - DORSALGIA, UNSPECIFIED; G89.29 - OTHER CHRONIC PAIN Status: Chronic (8) Depression Code(s): F32.9 - MAJOR DEPRESSIVE DISORDER, SINGLE EPISODE, UNSPECIFIED Status : Chronic (9) GERD (gastroesophageal reflux disease) Code(s): K21.9 - GASTRO-ESOPHAGEAL REFLUX DISEASE WITHOUT ESOPHAGITIS Status: Chronic (10) HTN (hypertension) Code(s): I10 - ESSENTIAL (PRIMARY) HYPERTENSION Status: Chronic (11) Hx of chronic heart failure Code(s): Z86.79 - PERSONAL HISTORY OF OTHER DISEASES OF THE CIRCULATORY SYSTEM Status: Chronic (12) Migraines Code(s): G43.909 - MIGRAINE, UNSP, NOT INTRACTABLE, WITHOUT STATUS MIGRAINOSUS Status: Chronic (13) Morbid obesity Code(s): E66.01 - MORBID (SEVERE) OBESITY DUE TO EXCESS CALORIES Status: Chronic (14) MARIAA (obstructive sleep apnea) Code(s): G47.33 - OBSTRUCTIVE SLEEP APNEA (ADULT) (PEDIATRIC) Status: Chronic - Plan Plan: Plan: 52 yo F admitted for atypical chest pain. Atypical Chest pain -Heart score 3, NST showed reversible ischemia -TSH wnl, ascvd risk 9.4%, continue atorvastatin to 80mg daily -s/p cardiac cath without stent placement -appreciate cards recs, dc today Left calf tenderness, swelling- -US negative -increased lovenox dose d/t bmi Blurry vision- -endorsed monocular vertical diplopia yesterday, recommend optho outpatient, CT head negative -no neuro focal deficits, will hold off on MRI as pt does not want it without anesthesia LALO vs. CKD -Cr 1.27, baseline undetermined HTN - PRN hydralazine - continue home BP medicines CHF -I actually do not see an echo here on prior admission here suggesting CHF, however we do not have all of her records -this dx was reported by pt hx; echo here showed pEF. -BNP 13 -No signs of fluid overload -continue lasix, follow-up outpatient DM2 -continue home meds -SSI with ACHS Morbid obesity -consider pickwickian as a possible cause of her SOB MARIAA -cpap at night GERD -famotidine PRN CAD -continue home atorvastatin Chronic back pain and sciatica -aware -Do not give norco at this time Migraines -aware Depression and anxiety -home buspar and venlafaxine Code status: full code DVT ppx: lovenox GI PPx: famotidine dispo: dc today Addendum - Attending - Attending Attestation Date/Time: 09/09/18 0800 I personally evaluated the patient and discussed the management with Dr. Jurado I agree with the History, Examination, Assessment and Plan documented above with any addition or exceptions noted below. 52 yo female with multiple medical problems and significant family history presents for evaluation of chest pain. HD#4 Patient without complaints. Woke up with headache this morning but improved with CPAP this morning. No CP. VS reviewed. Imaging reviewed. Labs reviewed. NAD. RRR. No murmurs. CTAB. No wheezing, crackles 1. Chest pain: Abnormal stress test. Negative LHC. Noncardiac etiology. Ok to d/ c to home. Ok to d/c to home. Will need follow up with sleep medicine, pulmonary for progressive restrictive lung dz, and ophtho. Vikas
--- NOTE | 2018-09-09 07:55 | EKG ---
Test Reason : CHEST PAIN Blood Pressure : / mmHG Vent. Rate : 104 BPM Atrial Rate : 104 BPM P-R Int : 156 ms QRS Dur : 082 ms QT Int : 344 ms P-R-T Axes : 048 -07 034 degrees QTc Int : 452 ms Sinus tachycardia Low voltage QRS Cannot rule out Anterior infarct , age undetermined Abnormal ECG When compared with ECG of 05-SEP-2018 15:01, (Unconfirmed) No significant change was found Confirmed by NORMA MENDOZA ([id number]) on 09/09/2018 7:54:25 AM Referred By: KEVIN Confirmed By:NORMA MENDOZA
[2018-09-09] MEDS ORDERED: Enoxaparin Sodium 40 MG/0.4 ML SYRINGE SC SCH (09:00)
[2018-09-09] MEDS: Spironolactone 25 MG TAB PO SCH (09:38)
[2018-09-09] MEDS: Minoxidil 10 MG TAB PO SCH (09:38)
[2018-09-09] MEDS: busPIRone HCl 5 MG TAB PO SCH (09:38)
[2018-09-09] MEDS: hydrALAZINE 25 MG TAB PO SCH (09:39)
[2018-09-09] MEDS: Famotidine 20 MG TAB PO SCH (09:39)
[2018-09-09] MEDS: Gabapentin 300 MG CAP PO SCH (09:39)
[2018-09-09] MEDS: Allopurinol 100 MG TAB PO SCH (09:39)
[2018-09-09] MEDS: Amlodipine 10 MG TAB PO SCH (09:39)
[2018-09-09] MEDS: Sodium Chloride 0.9% 1,000 ML IV SCH (09:40)
[2018-09-09 11:27] VITALS: BP 145/76; TEMP 97.9
== END 2018-09-09 15:13 | disposition home or self-care (01) | DRG 287 ==
LOC: ERS 14:49 → 2SW 18:20 → OBSVTOIN 09-07 17:13
PROVIDERS: ADMIT Family Medicine; ATTEND Family Medicine
PROC: 4A023N7 Measurement of Cardiac Sampling and Pressure, Left Heart, Percutaneous Approach (ICD-10-PCS; principal; 2018-09-08)
PROC: B2111ZZ Fluoroscopy of Multiple Coronary Arteries using Low Osmolar Contrast (ICD-10-PCS; 2018-09-08)
PROC: B2151ZZ Fluoroscopy of Left Heart using Low Osmolar Contrast (ICD-10-PCS; 2018-09-08)
DX: R07.89 Other chest pain (principal); Z68.43 Body mass index [BMI] 50.0-59.9, adult; N17.9 Acute kidney failure, unspecified; I50.9 Heart failure, unspecified; G43.909 Migraine, unspecified, not intractable, without status migrainosus; E11.9 Type 2 diabetes mellitus without complications; E66.01 Morbid (severe) obesity due to excess calories; G47.33 Obstructive sleep apnea (adult) (pediatric); F41.9 Anxiety disorder, unspecified; K21.9 Gastro-esophageal reflux disease without esophagitis; I11.0 Hypertensive heart disease with heart failure; M54.9 Dorsalgia, unspecified; G89.29 Other chronic pain; F32.9 Major depressive disorder, single episode, unspecified; H53.2 Diplopia; M54.30 Sciatica, unspecified side; Z96.653 Presence of artificial knee joint, bilateral; Z90.49 Acquired absence of other specified parts of digestive tract; Z84.1 Family history of disorders of kidney and ureter; Z84.89 Family history of other specified conditions; Z82.49 Family history of ischemic heart disease and other diseases of the circulatory system
CPT/HCPCS: 36415; 36416; 70450; 71045; 71275; 76770; 78452; 80048; 80053; 80061; 81001; 82550; 83036; 83735; 83880; 84100; 84443; 84484; 85025; 85379; 85652; 86780; 87389; 90471; 90686; 93005; 93010; 93017; 93306; 93458; 94660; 94760; 96374; 99152; 99153; A9500; C1760; C1769; G0008; J0153; J1644; J1650; J1940; J2250; J3010; Q9966; Q9967

== ENCOUNTER 2018-11-06 12:46 | Emergency (ER) | payer MEDICARE, MEDICAID ==
[2018-11-06] MEDS ORDERED: Ibuprofen 800 MG TAB ONE (13:29)
== END 2018-11-06 13:34 | disposition home or self-care (01) ==
LOC: ERS 12:46
DX: H92.02 Otalgia, left ear (principal); I11.0 Hypertensive heart disease with heart failure; I50.9 Heart failure, unspecified; E11.9 Type 2 diabetes mellitus without complications; K21.9 Gastro-esophageal reflux disease without esophagitis; G47.00 Insomnia, unspecified; F32.9 Major depressive disorder, single episode, unspecified; Z79.899 Other long term (current) drug therapy
CPT/HCPCS: 99283

== ENCOUNTER 2019-06-24 15:52 | Inpatient (IN) | payer MEDICARE, MEDICAID ==
[2019-06-24 16:38] LABS: Hemoglobin 12.1 g/dL (12.0-16.0); Mean Corpuscular HGB CONC 32.6 g/dL (32.0-36.0); Mean Corpuscular Hemoglobin 28.4 pg (27.0-31.0); Mean Corpuscular Volume 87.3 fL (78.0-98.0); Mean Platelet Volume 7.9 fL (7.4-10.4); Platelet Count 266 thou/uL (130-400); RBC Distribution Width 12.9 % (11.5-14.5); Red Blood Cell (RBC) Count 4.24 mill/uL (4.20-5.40); White Blood Cell (WBC) Count 6.6 thou/uL (4.8-10.8)
--- NOTE | 2019-06-24 16:51 | RAD ---
XR Chest 1 View Portable HISTORY: Hypoxia, cough COMPARISON: 09/05/2018 FINDINGS: The heart size is normal. The lungs are well expanded without focal areas of consolidation, pneumothorax or pleural effusions. Left humeral head prostheses is again seen. IMPRESSION: No radiographic evidence of acute cardiopulmonary process.
[2019-06-24 16:57] LABS: ALT (SGPT) 40 U/L (8-55); AST (SGOT) 38 U/L (5-34); Albumin 3.8 g/dL (3.5-5.0); Alkaline Phosphatase 88 U/L (40-110); Anion Gap 12 mmol/L (10-20); BUN (Urea Nitrogen) 17 mg/dL (9.8-20.1); Bilirubin, Total 0.4 mg/dL (0.2-1.2); Calc. Creatinine Clearance 0 mL/min (70-130); Calcium 8.9 mg/dL (7.8-10.44); Carbon Dioxide 28 mmol/L (22-29); Chloride 102 mmol/L (98-107); Estimated GFR-MDRD 36; Globulin 4.5 g/dL (2.4-3.5); Glucose 87 mg/dL (70-105); Protein, Total 8.3 g/dL (6.0-8.3); Sodium 138 mmol/L (136-145)
[2019-06-24 16:58] LABS: Band 4 % (5-11); Lymphocytes 16 % (21-51); MDiff Complete? YES; Monocytes 12 % (0-10); Neutrophil 68 % (42-75); Platelet Morphology Comment Appears Adequate; Polychromasia SLIGHT = 2-3 cells (100X) (0-2/hpf)
[2019-06-24] MEDS ORDERED: Ibuprofen 800 MG TAB ONE (17:28)
[2019-06-24] MEDS ORDERED: Oseltamivir 75 MG CAP PO SCH (18:15)
--- NOTE | 2019-06-24 18:30 | PDOC.FPRHP ---
- History of Present Illness Chief Complaint: hypoxia History of Present Illness: Patient is a 53F with PMHx of c that presented to the ED after being found to be hypoxic at the [facility] clinic. Per patient, she was 82-83% on RA at the clinic. She was 87% on RA on the arrival to the ED, and then recovered to 98-99% on 2L O2. She reports that she has had a cough for 3 months. She started vomiting last night and this morning. She also reports of having diarrhea last week and today, mucus-containing. States she was SOB, but was resting more comfortably in the ED on oxygen. Reported of subjective fever, measured temperature of 103F at clinic. Flu positive in ED, patient has not had her flu shot this year. Denies any other symptoms including chest pain or generalized body aches. Reports of some abdominal pain, worse when she coughs. Uses a cpap at night. ED Course: 1L bolus x 2, tamiflu, 800mg IBP - Allergies/Adverse Reactions Allergies Allergy/AdvReac Type Severity Reaction Status Date / Time No Known Drug Allergies Allergy Verified 06/24/19 23:47 - Home Medications Medication Instructions Recorded Confirmed Type Allopurinol 100 mg PO DAILY 09/05/18 06/24/19 History Amlodipine [Norvasc] 10 mg PO DAILY 09/05/18 06/24/19 History Atorvastatin Calcium 40 mg PO HS 09/05/18 06/24/19 History Carvedilol 37.5 mg PO BID 09/05/18 06/24/19 History Chlorthalidone 50 mg PO DAILY 09/05/18 06/24/19 History Ergocalciferol (Vitamin D2) 1.25 mg PO SEEPHYS 09/05/18 06/24/19 History [Vitamin D2] Esomeprazole Magnesium [NexIUM] 40 mg PO QAM-WM 09/05/18 06/24/19 History Gabapentin 600 mg PO TID 09/05/18 06/24/19 History Minoxidil 10 mg PO DAILY 09/05/18 06/24/19 History Spironolactone 50 mg PO DAILY 09/05/18 06/24/19 History Venlafaxine HCl [Effexor XR] 150 mg PO HS 09/05/18 06/24/19 History busPIRone HCl [Buspirone HCl] 15 mg PO TID 09/05/18 06/24/19 History cloNIDine HCl 0.3 mg PO HS PRN 09/05/18 06/24/19 History hydrALAZINE [Apresoline] 25 mg PO TID 09/05/18 06/24/19 History Oxybutynin [Ditropan] 5 mg PO BID 06/24/19 06/24/19 History - History PMHx:MARIAA, HTN, pre-diabetes, GERD, CAD, urinary incontinence PSHx:L and R knee replacements, partial colectomy, appendectomy, L shoulder replacement. FHx:son- [place] x 2, of kidney failure; mom- of CHF; dad- of CHF; sister- of breast cancer; sister- of liver cancer; sister- of brain cancer Social: non smoker, no etoh use, no drug use - Review of Systems General: reports: fever/chills Eyes: denies: eye pain, vision changes ENT: denies: nasal congestion, rhinorrhea Respiratory: reports: cough, shortness of breath Cardiovascular: denies: chest pain, palpitation, edema Gastrointestinal: reports: nausea, vomiting, diarrhea Genitourinary: denies: incontinence, dysuria Skin: denies: rashes, lesions Musculoskeletal: denies: tenderness, stiffness Neurological: denies: syncope, seizure Psychological: denies: anxiety, depression - Vital signs BP: [126/55] HR: [97] RR: [19] Tmax: [103] Pox: [94]% on [2L] Wt: [124.7kg] FMR H&P: Results - Labs Result Diagrams: 06/24/19 16:18 06/24/19 16:18 Lab results: WBC 6.6 thou/uL (4.8-10.8) 06/24/19 16:18 Hgb 12.1 g/dL (12.0-16.0) 06/24/19 16:18 Hct 37.0 % (36.0-47.0) 06/24/19 16:18 MCV 87.3 fL (78.0-98.0) 06/24/19 16:18 Plt Count 266 thou/uL (130-400) 06/24/19 16:18 Band Neuts % (Manual) 4 % (5-11) L 06/24/19 16:18 Sodium 138 mmol/L (136-145) 06/24/19 16:18 Potassium 4.0 mmol/L (3.5-5.1) 06/24/19 16:18 Chloride 102 mmol/L (98-107) 06/24/19 16:18 Carbon Dioxide 28 mmol/L (22-29) 06/24/19 16:18 BUN 17 mg/dL (9.8-20.1) 06/24/19 16:18 Creatinine 1.78 mg/dL (0.6-1.1) H 06/24/19 16:18 Glucose 87 mg/dL (70-105) 06/24/19 16:18 Lactic Acid 0.5 mmol/L (0.5-2.2) 06/24/19 16:24 Calcium 8.9 mg/dL (7.8-10.44) 06/24/19 16:18 Total Bilirubin 0.4 mg/dL (0.2-1.2) 06/24/19 16:18 AST 38 U/L (5-34) H 06/24/19 16:18 ALT 40 U/L (8-55) 06/24/19 16:18 Alkaline Phosphatase 88 U/L (40-110) 06/24/19 16:18 Serum Total Protein 8.3 g/dL (6.0-8.3) 06/24/19 16:18 Albumin 3.8 g/dL (3.5-5.0) 06/24/19 16:18 FMR H&P: A/P - Problem List (1) Acute respiratory failure with hypoxia Current Visit: Yes Status: Acute Code(s): J96.01 - ACUTE RESPIRATORY FAILURE WITH HYPOXIA (2) LALO (acute kidney injury) Current Visit: No Status: Acute Code(s): N17.9 - ACUTE KIDNEY FAILURE, UNSPECIFIED (3) CAD (coronary artery disease) Current Visit: No Status: Chronic Code(s): I25.10 - ATHSCL HEART DISEASE OF [place] CORONARY ARTERY W/O ANG PCTRS (4) GERD (gastroesophageal reflux disease) Current Visit: No Status: Chronic Code(s): K21.9 - GASTRO-ESOPHAGEAL REFLUX DISEASE WITHOUT ESOPHAGITIS (5) HTN (hypertension) Current Visit: No Status: Chronic Code(s): I10 - ESSENTIAL (PRIMARY) HYPERTENSION (6) MARIAA (obstructive sleep apnea) Current Visit: No Status: Chronic Code(s): G47.33 - OBSTRUCTIVE SLEEP APNEA (ADULT) (PEDIATRIC) - Plan Patient is a 53F with PMHx of MARIAA, HTN, GERD, pre-diabetes, urinary incontinence , CAD admitted for acute hypoxic respiratory failure #Acute hypoxic respiratory failure #Influenza B positive -low 80s in clinic, upper 80s in ED on RA, upper 90s on 2L O2 -was not in respiratory distress on exam -scant wheezing on exam -scheduled duonebs -CPAP at night, as patient uses this at home -started on tamiflu in the ED, continue -tylenol for fever/pain #LALO -creatinine 1.78, up from baseline 1.2 -IVF hydration -will continue to monitor #Diarrhea -stool studies #HTN -patient had BP in the 90-100 systolic in ED, will hold home BP meds for now #GERD -continue home meds #Urinary incontinence -continue home meds #CAD -continue home meds DVT ppx: lovenox Dispo: inpatient for tamiflu, oxygen, and albuterol for acute hypoxic respiratory failure due to influenza B Code: Full PCP: NICHO FMR H&P: Upper Level - Pertinent history 53 yo female seen due to hypoxia and cough. Patient was sent by PCP to ED due to hypoxia in clinic. Please see general internist note above for further information. - Plan Date/Time: 06/24/19 1830 I, Dion Palma MD, have evaluated this patient and agree with findings/ plan as outlined by general internist resident. Pertinent changes/additions are listed here. 1. Acute Hypoxic Respiratory Failure 2/2 Influenza B - Initiated tamiflu - Supplemental O2 as needed - Duonebs ordered due to wheezing on exam as well 2. LALO - Likely secondary to dehydration - IVF - Recheck BMP All other chronic conditions reviewed and medications to be restarted as appropriate. PCP: NICHO Devine CODE STATUS: FULL CODE Disposition: Stable, will admit to medical floor for further evaluation and treatment. Addendum - Attending - Attending Attestation Date/Time: 06/25/19 0041 I personally evaluated the patient and discussed the management with Dr. Portillo I agree with the History, Examination, Assessment and Plan documented above with any addition or exceptions noted below - 53 yo female with h/o DM, HTBN and MARIAA sent from clinic due decreased O2 saturations. Patient reports 3 month h /o cough but acutely worsening since yesterday. Non-productive. Subj fever/ chills. Denies any ill contacts. Denies any nasal congestion, body aches. Does report some abdominal soreness from coughing. PMH/PSH/Meds/SH reviewed and agree with resident's documentation. Tm 103 P81 RR19 BP 99/58 Exam repeated by me and agree with resident's findings. Labs: WBC=6.6, H/H=12.1/37.0, Nak=888 , Iv=742, K=4.0, Rh=582, CO@=28, BUN/Cr=17/1.78, Gluc=87, lactic acid=0.5, CXR- negative, Influenza B (+) A/P: 1) Acute hypoxic respiratory failure secondary to influenza B- continue O2 and wean as tolerated. Continue Tamiflu for influenza. 2) DM- continue home meds and monitor accuchecks, 3) LALO- continue IVF and recheck in AM. 4) MARIAA- CPAP for sleeping
[2019-06-24] MEDS ORDERED: Ondansetron ODT 4 MG TAB SL PRN (19:55)
[2019-06-24] MEDS ORDERED: Ondansetron PF 4 MG/2 ML Vial IVP PRN (19:55)
[2019-06-24] MEDS ORDERED: Acetaminophen 325 MG TAB PO PRN (19:55)
[2019-06-24] MEDS ORDERED: HumaLOG 300 UNITS/3 ML VIAL SC PRN ×2 (21:43)
[2019-06-24] MEDS ORDERED: Dextrose 50% Abboject 50 ML SYRINGE SLOW IVP PRN (21:43)
[2019-06-24] MEDS ORDERED: Ondansetron ODT 4 MG TAB PO PRN (21:43)
[2019-06-24] MEDS ORDERED: Dextrose 5% in Water 1,000 ML IV PRN (21:43)
[2019-06-24] MEDS ORDERED: cloNIDine 0.3 MG TAB PO PRN (22:06)
[2019-06-24] MEDS: Lactated Ringer's 1,000 ML IV SCH (22:09)
[2019-06-24 22:26] VITALS: BMI 51.0
[2019-06-24] MEDS ORDERED: Atorvastatin Calcium 40 MG TAB PO SCH (22:45)
[2019-06-24] MEDS ORDERED: hydrALAZINE 25 MG TAB PO SCH (22:45)
[2019-06-24] MEDS ORDERED: Carvedilol 25 MG TAB PO SCH (22:45)
[2019-06-24] MEDS ORDERED: Gabapentin 300 MG CAP PO SCH (22:45)
[2019-06-24] MEDS ORDERED: Venlafaxine HCl XR 150 MG CAP PO SCH (22:45)
[2019-06-24] MEDS ORDERED: busPIRone HCl 5 MG TAB PO SCH (22:45)
[2019-06-25] MEDS: Lactated Ringer's 1,000 ML IV SCH ×4 (04:37→23:11)
--- NOTE | 2019-06-25 06:28 | PDOC.FM ---
- Subjective Subjective: Pt is doing well. She continues with cough. She is afebrile. She had only 1 episode of diarrhea. - Objective Vital Signs & Weight: Vital Signs (12 hours) Temp Pulse Resp BP BP Pulse Ox 06/25/19 04:20 98.4 F 72 18 111/71 91 L 06/25/19 01:38 76 13 95 06/24/19 23:56 98.5 F 81 19 99/58 L 93 L 06/24/19 22:52 99 123/59 L 06/24/19 19:47 100.1 F H 99 17 123/59 L 93 L Weight Weight 126.416 kg Result Diagrams: 06/25/19 05:38 06/25/19 05:38 Phys Exam - Physical Examination Constitutional: NAD HEENT: PERRLA, moist MMs Respiratory: wheezing present Cardiovascular: RRR, no significant murmur Gastrointestinal: soft, positive bowel sounds Musculoskeletal: no edema, pulses present Dx/Plan (1) Influenza Code(s): J11.1 - FLU DUE TO UNIDENTIFIED INFLUENZA VIRUS W OTH RESP MANIFEST Status: Acute (2) Acute respiratory failure with hypoxia Code(s): J96.01 - ACUTE RESPIRATORY FAILURE WITH HYPOXIA Status: Acute (3) LALO (acute kidney injury) Code(s): N17.9 - ACUTE KIDNEY FAILURE, UNSPECIFIED Status: Acute (4) CAD (coronary artery disease) Code(s): I25.10 - ATHSCL HEART DISEASE OF [place] CORONARY ARTERY W/O ANG PCTRS Status: Chronic (5) GERD (gastroesophageal reflux disease) Code(s): K21.9 - GASTRO-ESOPHAGEAL REFLUX DISEASE WITHOUT ESOPHAGITIS Status: Chronic (6) HTN (hypertension) Code(s): I10 - ESSENTIAL (PRIMARY) HYPERTENSION Status: Chronic (7) MARIAA (obstructive sleep apnea) Code(s): G47.33 - OBSTRUCTIVE SLEEP APNEA (ADULT) (PEDIATRIC) Status: Chronic - Plan Plan: Patient is a 53F with PMHx of MARIAA, HTN, GERD, pre-diabetes, urinary incontinence , CAD admitted for acute hypoxic respiratory failure #Acute hypoxic respiratory failure #Influenza B positive -low 80s in clinic, upper 80s in ED on RA, upper 90s on 2L O2. Will attempt to titrate off oxygen, if handled well will check oxygen sat's with ambulation. -was not in respiratory distress on exam -scant wheezing on exam in am -scheduled duonebs -CPAP at night, as patient uses this at home -started on tamiflu in the ED, continue -tylenol for fever/pain #LALO -creatinine 1.78 --> 1.62, up from baseline 1.2 -IVF hydration -will continue to monitor #Diarrhea Pt admitted to one episode of loose stool. -stool studies #HTN -patient had BP in the 90-100 systolic in ED, will hold home BP meds for now #GERD -continue home meds #Urinary incontinence -continue home meds #CAD -continue home meds DVT ppx: lovenox Dispo: inpatient for tamiflu, oxygen, and albuterol for acute hypoxic respiratory failure due to influenza B Code: Full PCP: NICHO Addrhinaum - Attending - Attending Attestation Date/Time: 06/25/19 9885 I personally evaluated the patient and discussed the management with Dr. Juarez. I agree with the History, Examination, Assessment and Plan documented above with any addition or exceptions noted below.
[2019-06-25 06:30] LABS: Anion Gap 9 mmol/L (10-20); BUN (Urea Nitrogen) 21 mg/dL (9.8-20.1); Calc. Creatinine Clearance 78 mL/min (70-130); Calcium 8.1 mg/dL (7.8-10.44); Carbon Dioxide 26 mmol/L (22-29); Chloride 106 mmol/L (98-107); Estimated GFR-MDRD 40; Glucose 91 mg/dL (70-105); Potassium 3.9 mmol/L (3.5-5.1); Sodium 137 mmol/L (136-145)
[2019-06-25 06:53] LABS: Band 2 % (5-11); Hemoglobin 10.7 g/dL (12.0-16.0); Lymphocytes 46 % (21-51); MDiff Complete? YES; Mean Corpuscular HGB CONC 31.6 g/dL (32.0-36.0); Mean Corpuscular Hemoglobin 28.3 pg (27.0-31.0); Mean Corpuscular Volume 89.6 fL (78.0-98.0); Mean Platelet Volume 7.9 fL (7.4-10.4); Monocytes 12 % (0-10); Neutrophil 39 % (42-75); Platelet Count 229 thou/uL (130-400); RBC Distribution Width 13.1 % (11.5-14.5); Red Blood Cell (RBC) Count 3.78 mill/uL (4.20-5.40)
[2019-06-25] MEDS: Allopurinol 100 MG TAB PO SCH (08:32)
[2019-06-25] MEDS: busPIRone HCl 5 MG TAB PO SCH ×3 (08:32→19:54)
[2019-06-25] MEDS: Oxybutynin 5 MG TAB PO SCH ×2 (08:33→19:55)
[2019-06-25] MEDS: Enoxaparin Sodium 30 MG/0.3 ML SYRINGE SC SCH (08:33)
[2019-06-25] MEDS: Gabapentin 300 MG CAP PO SCH ×3 (08:33→19:54)
[2019-06-25] MEDS: Oseltamivir 75 MG CAP PO SCH ×2 (08:34→19:55)
[2019-06-25] MEDS ORDERED: hydrALAZINE 25 MG TAB PO SCH (09:00)
[2019-06-25] MEDS ORDERED: Carvedilol 25 MG TAB PO SCH (09:00)
[2019-06-25] MEDS ORDERED: FLU VACC QS2019-20(6MOS UP)/PF 60 MCG/0.5 ML SYRINGE IM ONE (09:00)
[2019-06-25] MEDS ORDERED: Spironolactone 25 MG TAB PO SCH (09:00)
[2019-06-25] MEDS ORDERED: Allopurinol 100 MG TAB PO SCH (09:00)
[2019-06-25] MEDS ORDERED: Oxybutynin 5 MG TAB PO SCH (09:00)
[2019-06-25] MEDS ORDERED: Amlodipine 10 MG TAB PO SCH (09:00)
[2019-06-25] MEDS ORDERED: Minoxidil 10 MG TAB PO SCH (09:00)
[2019-06-25] MEDS: Acetaminophen 325 MG TAB PO PRN ×2 (15:20→21:42)
[2019-06-25] MEDS: Benzonatate 100 MG CAP PO PRN ×2 (15:20→19:55)
[2019-06-25] MEDS ORDERED: Venlafaxine HCl XR 150 MG CAP PO SCH (21:00)
[2019-06-25] MEDS ORDERED: Atorvastatin Calcium 40 MG TAB PO SCH (21:00)
[2019-06-25] MEDS ORDERED: Morphine 2 MG/ML SYRINGE SLOW IVP SCH (23:00)
[2019-06-25] MEDS ORDERED: guaiFENesin ER 600 MG TAB PO SCH (23:00)
[2019-06-26] MEDS: Lactated Ringer's 1,000 ML IV SCH (03:53)
--- NOTE | 2019-06-26 06:02 | PDOC.FM ---
- Subjective Subjective: Pt did not sleep through the night secondary to frequent urination. She continues to cough requiring mucinex although cough has been persistent for 3 months. She believes she could care for herself at home due to how well she feels. - Objective Vital Signs & Weight: Vital Signs (12 hours) Temp Pulse Resp BP Pulse Ox 06/26/19 05:01 71 108/71 06/26/19 04:00 98.7 F 77 18 181/103 H 92 L 06/25/19 23:48 98.5 F 86 19 117/64 93 L 06/25/19 20:00 99.8 F H 94 19 145/79 H 93 L 06/25/19 18:57 78 20 Weight Weight 126.416 kg I&O: 06/24/19 06/25/19 06/26/19 06:59 06:59 06:59 Intake Total 2150 1800 Balance 2150 1800 Result Diagrams: 06/25/19 05:38 06/26/19 06:10 Phys Exam - Physical Examination Constitutional: NAD HEENT: PERRLA, moist MMs Respiratory: no wheezing Coarse breath sounds diffusely Cardiovascular: RRR, no significant murmur Gastrointestinal: soft, non-tender Musculoskeletal: no edema, pulses present Dx/Plan (1) Influenza Code(s): J11.1 - FLU DUE TO UNIDENTIFIED INFLUENZA VIRUS W OTH RESP MANIFEST Status: Acute (2) Acute respiratory failure with hypoxia Code(s): J96.01 - ACUTE RESPIRATORY FAILURE WITH HYPOXIA Status: Acute (3) LALO (acute kidney injury) Code(s): N17.9 - ACUTE KIDNEY FAILURE, UNSPECIFIED Status: Acute (4) CAD (coronary artery disease) Code(s): I25.10 - ATHSCL HEART DISEASE OF [place] CORONARY ARTERY W/O ANG PCTRS Status: Chronic (5) GERD (gastroesophageal reflux disease) Code(s): K21.9 - GASTRO-ESOPHAGEAL REFLUX DISEASE WITHOUT ESOPHAGITIS Status: Chronic (6) HTN (hypertension) Code(s): I10 - ESSENTIAL (PRIMARY) HYPERTENSION Status: Chronic (7) MARIAA (obstructive sleep apnea) Code(s): G47.33 - OBSTRUCTIVE SLEEP APNEA (ADULT) (PEDIATRIC) Status: Chronic - Plan Plan: Patient is a 53F with PMHx of AMRIAA, HTN, GERD, pre-diabetes, urinary incontinence , CAD admitted for acute hypoxic respiratory failure #Acute hypoxic respiratory failure #Influenza B positive -low 80s in clinic, upper 80s in ED on RA, upper 90s on 2L O2. Pt tolerated no oxygen therapy at rest through the night; Will check oxygen saturations with ambulation and hopefully discharge this morning. Duoneb at 0700 for coarse breath sounds. -started on tamiflu in the ED, continue -tylenol for fever/pain #LALO -creatinine 1.78 --> 1.62, up from baseline 1.2 -IVF hydration -will continue to monitor # Loose Stool Pt admitted to one episode of loose stool. -stool studies negative except for fecal lactoferrin. Loose stool improved. #HTN -patient had BP in the 90-100 systolic in ED, will hold home BP meds for now #GERD -continue home meds #Urinary incontinence -continue home meds #CAD -continue home meds DVT ppx: lovenox Dispo: inpatient for tamiflu, oxygen, and albuterol for acute hypoxic respiratory failure due to influenza B Code: Full PCP: NICHO Addendum - Attending - Attending Attestation Date/Time: 06/27/19 0256 I personally evaluated the patient and discussed the management with Dr. Juarez I agree with the History, Examination, Assessment and Plan documented above with any addition or exceptions noted below. Patient states much improved wanting to go home concern with PMHX refractory HTN on multidrug regimen with normal BP off all medication currently and mid desaturation with exertion. Patient stable on room air at rest and will f/u short term and continue to monitor BP prior to re starting of home BP medication and need f/u RFT.
[2019-06-26 07:13] LABS: Anion Gap 10 mmol/L (10-20); BUN (Urea Nitrogen) 13 mg/dL (9.8-20.1); Calc. Creatinine Clearance 102 mL/min (70-130); Calcium 8.9 mg/dL (7.8-10.44); Carbon Dioxide 32 mmol/L (22-29); Chloride 104 mmol/L (98-107); Estimated GFR-MDRD 54; Glucose 80 mg/dL (70-105); Potassium 4.5 mmol/L (3.5-5.1); Sodium 141 mmol/L (136-145)
[2019-06-26] MEDS: Oseltamivir 75 MG CAP PO SCH (08:59)
[2019-06-26] MEDS: Acetaminophen 325 MG TAB PO PRN (08:59)
[2019-06-26] MEDS: Benzonatate 100 MG CAP PO PRN ×2 (08:59→14:45)
[2019-06-26] MEDS: Allopurinol 100 MG TAB PO SCH (08:59)
[2019-06-26] MEDS ORDERED: guaiFENesin ER 600 MG TAB PO SCH (09:00)
[2019-06-26] MEDS: Gabapentin 300 MG CAP PO SCH ×2 (09:00→14:42)
[2019-06-26] MEDS: busPIRone HCl 5 MG TAB PO SCH ×2 (09:00→14:42)
[2019-06-26] MEDS: Oxybutynin 5 MG TAB PO SCH (09:01)
[2019-06-26] MEDS: Enoxaparin Sodium 30 MG/0.3 ML SYRINGE SC SCH (09:01)
[2019-06-26 16:55] VITALS: BP 116/72; TEMP 98.6
--- NOTE | 2019-06-28 07:19 | PQF ---
[employer] Reports Winform ViewerDIBRIGITTE TATE ANNA MD [id number] [id number] CLINICAL DOCUMENTATION CLARIFICATION FORM: POST DISCHARGE Addendum to original discharge summary date: ____ Late entry note date: __ DATE: 06/28/2019 ATTN: Debra Muller Please exercise your independent, professional judgment in responding to the clarification form. Clinical indicators are provided on the bottom of this form for your review Kindly clarify regarding ruled in/ruled out sepsis Please check appropriate box(s) to clarify if the following diagnosis has been ruled in or ruled out: Sepsis [ ] Ruled in diagnosis [ ] Continue to treat [ ] Resolved [ ] Ruled out diagnosis [ ] Cannot rule out diagnosis [ ] Other diagnosis [ ] Unable to determine In addition, please specify: Present on Admission (POA): [ ] Yes [ ] No [ ] Unable to determine For continuity of documentation, please document condition throughout progress notes and discharge summary. Thank You. CLINICAL INDICATORS - SIGNS / SYMPTOMS / LABS Sepsis secondary to influenza - ED report final diagnosis Influenza B positive - H and P by Debra Muller RISK FACTORS Acute hypoxic respiratory failure - H and P by Debra Muller LALO - H and P by Debra Muller Influenza B positive - H and P by Debra Muller TREATMENTS Tamiflu started on 06/24 - Medications IV fluids from 06/24 - 06/25 - Medications (This form is maintained as a part of the permanent medical record) [employer] [id number] [employer]. All Rights Reserved Ji [email or web address] [phone] MTDD
[2019-06-28] MEDS ORDERED: Ergocalciferol 1.25 MG(50,000 UNITS) CAP PO SCH (09:00)
--- NOTE | 2019-06-28 11:09 | DIS ---
DATE OF ADMISSION: 06/24/2019 DATE OF DISCHARGE: 06/26/2019 RESIDENT: Allen Juarez DO ADMITTING ATTENDING: Debra Muller MD DISCHARGE ATTENDING: Sebastien Gregory MD CONSULTS: None. PROCEDURES: None. PRIMARY DIAGNOSES: 1. Acute respiratory failure with hypoxia. 2. Acute kidney injury. 3. Influenza B positive. 4. Diarrhea. SECONDARY DIAGNOSES: 1. Hypertension. 2. Gastroesophageal reflux disease. 3. Urinary incontinence. 4. Coronary artery disease. DISCHARGE MEDICATIONS: 1. Chlorthalidone 50 mg p.o. daily. 2. Atorvastatin 40 mg p.o. at bedtime. 3. Amlodipine 10 mg p.o. daily. 4. Buspirone 15 mg p.o. t.i.d. 5. Effexor 150 mg p.o. at bedtime. 6. Clonidine 0.3 mg p.o. at bedtime p.r.n. 7. Hydralazine 25 mg p.o. t.i.d. 8. Coreg 37.5 mg p.o. b.i.d. 9. Gabapentin 600 mg p.o. t.i.d. 10. Minoxidil 10 mg p.o. daily. 11. Nexium 40 mg p.o. q.a.m. with meal. 12. Spironolactone 50 mg p.o. daily. 13. Allopurinol 100 mg p.o. daily. 14. Vitamin D2 2000 units daily. 15. Oxybutynin 5 mg p.o. b.i.d. 16. Benzonatate 100 mg p.o. q.4 hours p.r.n. cough. 17. Tamiflu 75 mg p.o. b.i.d. for a 3-day course. HISTORY OF PRESENT ILLNESS/HOSPITAL COURSE: Alyx Martinez is a 53-year-old female , past medical history significant for coronary artery disease, GERD, hypertension , obstructive sleep apnea, presented to the clinic on 06/24/2019 and diagnosed with acute respiratory failure with hypoxia secondary to influenza type B. Her oxygen saturations were in the 80s in the clinic. Due to this, she was sent over to the hospital for observation. When she got to the hospital, she was placed on nasal cannula oxygen, improving her oxygen saturations to the mid 90s. She also required DuoNeb for coarse breath sounds. On the second day, pt tolerated discontinuation of oxygen at rest. She is saturating in the mid 90s. But on ambulation, her oxygen saturations would drop to the mid-to-high 80s. Due to this, we kept her for one more night. On the 3rd day, at the time of discharge, her oxygen saturations were in low 90s to high 80s, but the patient felt very good. She had not had any fevers and felt like she was able to take care of herself at home. We discussed close followup in the outpatient setting due to her oxygen saturations. The patient agreed that she wanted to be at home. The patient also has multiple blood pressure medications, which she did not require while she was in the hospital. Her blood pressures ran in the 110s/70s until about mid day of 06/26/2019. There started to go up with systolic blood pressure of 141. We thought possibly this was secondary to a component of adrenal insufficiency. On discharge, we discussed the patient monitoring her blood pressures multiple times per day and if she began to experience high blood pressures to begin restarting her medications slowly. Advised for her to restart her hydralazine and clonidine last. Again, we advised close followup in the outpatient setting, so we could titrate her blood pressure medications appropriately. The patient also has had a consistent cough for about 3 months. She says that Tessalon Perles helps with her cough. She might have a component of bronchitis. DISPOSITION: Stable. DISCHARGE INSTRUCTIONS: 1. Location: [facility]. 2. Diet: Heart healthy. 3. Activity: As tolerated. 4. Followup: Follow up with [facility] within 3 days. Job ID: [id number] [facility]
[2019-07-03 20:07] LABS: Renin Activity 0.316 ng/mL/hr (0.167-5.380)
== END 2019-06-26 16:50 | disposition home or self-care (01) | DRG 193 ==
LOC: ERS 15:52 → T4-B 19:59 → UNDOADMOB 20:15 → OBSVTOIN 20:43 → INTOOBSV 20:43
PROVIDERS: ADMIT Family Medicine; ATTEND Family Medicine
DX: J10.1 Influenza due to other identified influenza virus with other respiratory manifestations (principal); J96.01 Acute respiratory failure with hypoxia; N17.9 Acute kidney failure, unspecified; I25.10 Atherosclerotic heart disease of native coronary artery without angina pectoris; K21.9 Gastro-esophageal reflux disease without esophagitis; I10 Essential (primary) hypertension; G47.33 Obstructive sleep apnea (adult) (pediatric); R19.7 Diarrhea, unspecified; R32 Unspecified urinary incontinence; E86.0 Dehydration; E11.9 Type 2 diabetes mellitus without complications; Z96.653 Presence of artificial knee joint, bilateral; Z96.612 Presence of left artificial shoulder joint; Z90.49 Acquired absence of other specified parts of digestive tract
CPT/HCPCS: 36415; 36416; 71045; 80048; 80053; 82088; 83605; 83630; 84244; 84484; 85025; 87040; 87045; 87046; 87324; 87427; 87449; 87804; 93005; 94640; 94660; 96360; 96361; J1650; J2270; J7620

== ENCOUNTER 2019-12-23 00:30 | Emergency (ER) | payer MEDICARE, MEDICAID ==
--- NOTE | 2019-12-25 11:56 | EKG ---
Test Reason : Blood Pressure : / mmHG Vent. Rate : 091 BPM Atrial Rate : 091 BPM P-R Int : 172 ms QRS Dur : 074 ms QT Int : 364 ms P-R-T Axes : 042 -19 030 degrees QTc Int : 447 ms Normal sinus rhythm Low voltage QRS Septal infarct , age undetermined Abnormal ECG Confirmed by ADELINE NUÑEZ ([id number]), commissioning editor JUSTINE MCKENZIE ([id number]) on 12/25/2019 11:55:55 AM Referred By: Confirmed By:ADELINE NUÑEZ
== END 2019-12-23 01:34 | disposition home or self-care (01) ==
LOC: ERS 00:30
DX: F43.20 Adjustment disorder, unspecified (principal); R07.9 Chest pain, unspecified; R06.00 Dyspnea, unspecified; E11.9 Type 2 diabetes mellitus without complications; G47.33 Obstructive sleep apnea (adult) (pediatric); I25.10 Atherosclerotic heart disease of native coronary artery without angina pectoris; I11.0 Hypertensive heart disease with heart failure; I50.9 Heart failure, unspecified; F41.9 Anxiety disorder, unspecified; F32.9 Major depressive disorder, single episode, unspecified; K21.9 Gastro-esophageal reflux disease without esophagitis
CPT/HCPCS: 93005

== ENCOUNTER 2022-09-20 11:48 | Inpatient (IN) | payer OTHER, MEDICAID ==
[2022-09-20 12:37] LABS: Bacteria/HPF 4+ HPF (None Seen); Bilirubin Negative (Negative); Blood, Urine Trace (Negative); Clarity Turbid (Clear); Glucose, Urine (Dipstick) Normal (Negative); Ketone, Urine Negative (Negative); Leukocyte 25 Leu/uL (Negative); Nitrite Negative (Negative); Protein, Urine (Dipstick) 20 mg/dL (Neg-Trace); Specific Gravity, Urine 1.019 (1.002-1.036); pH, Urine 7.5 (5.0-9.0)
[2022-09-20 12:51] LABS: #Basophils 0.1 thou/uL (0.0-0.2); #Eosinphils 0.1 thou/uL (0.0-0.7); #Monocytes 0.5 thou/uL (0.11-0.59); #Neutrophils 4.6 thou/uL (1.40-6.50); %Basophils 1.1 % (0.0-1.0); %Eosinophils 1.1 % (0.0-10.0); %Lymphocytes 27.7 % (21.0-51.0); %Monocytes 7.5 % (0.0-10.0); %Neutrophils 62.7 % (42.0-75.0); Hemoglobin 13.5 g/dL (12.0-16.0); Mean Corpuscular HGB CONC 31.6 g/dL (32.0-36.0); Mean Corpuscular Hemoglobin 29.2 pg (27.0-31.0); Mean Corpuscular Volume 92.4 fl (78.0-98.0); Mean Platelet Volume 8.5 fL (7.4-10.4); Platelet Count 282 10x3/uL (130-400); RBC Distribution Width 12.7 % (11.5-14.5); Red Blood Cell (RBC) Count 4.63 mill/uL (4.20-5.40); White Blood Cell (WBC) Count 7.3 10x3/uL (4.8-10.8)
[2022-09-20 13:25] LABS: ALT (SGPT) 9 U/L (8-55); AST (SGOT) 14 U/L (5-34); Alkaline Phosphatase 88 U/L (40-110); Anion Gap 14 mmol/L (10-20); BUN (Urea Nitrogen) 12 mg/dL (9.8-20.1); Bilirubin, Total 0.6 mg/dL (0.2-1.2); Calc. Creatinine Clearance 0 mL/min (70-130); Calcium 9.8 mg/dL (7.8-10.44); Carbon Dioxide 29 mmol/L (22-29); Chloride 102 mmol/L (98-107); Estimated GFR 46; Globulin 4.5 g/dL (2.4-3.5); Glucose 91 mg/dL (70-105); Lipase 20 U/L (8-78); Magnesium 1.8 mg/dL (1.6-2.6); Potassium 4.7 mmol/L (3.5-5.1); Protein, Total 8.5 g/dL (6.0-8.3)
[2022-09-20] MEDS ORDERED: Ipratropium/Albuterol 3 ML NEB ONE (13:31)
[2022-09-20 13:40] LABS: Sodium 140 mmol/L (136-145)
[2022-09-20] MEDS ORDERED: Iopamidol-370 76% 500 ML 1 ML ONE (13:50)
[2022-09-20 14:45] LABS: SARS-CoV-2 NAA Rapid Test Not Detected (NotDetected)
[2022-09-20] MEDS ORDERED: Furosemide 40 MG/4 ML VIAL ONE (15:52)
[2022-09-20 18:01] LABS: HIV (1/2) Antibody/Antigen Non-Reactive (NonReactive); HIV 1/2 INDEX 0.21 S/CO (<1.00)
[2022-09-20 18:21] VITALS: BMI 54.1
[2022-09-20 18:39] LABS: Actual Bicarbonate (HCO3a) 31.5 mEq/L (22-28); Base Excess (BEa) 4.9 mEq/L (-2.0 to +3.0); CO2 Tension 54.7 mmHg (35.0-45.0); Calcium, Ionized (arterial) 1.22 mmol/L (1.12-1.30); Carboxyhemoglobin (COHb) 0.9 gm% (0.0-3.0); Hemoglobin (Hb) 13.8 g/dL (12.0-16.0); Potassium - ABG Lab 3.76 mmol/L (3.70-5.30); pH, Arterial 7.38 (7.35-7.45)
[2022-09-20 18:40] LABS: ALV-art Gradient 109.305 mmHg (0-20)
[2022-09-20] MEDS ORDERED: Cyclobenzaprine 10 MG TAB PO PRN (18:41)
[2022-09-20] MEDS ORDERED: traZODone HCl 50 MG TAB PO PRN (18:41)
[2022-09-20] MEDS ORDERED: hydrOXYzine 25 MG TAB PO PRN (18:58)
[2022-09-20] MEDS ORDERED: Lidocaine 4% Patch TD PRN (18:59)
[2022-09-20 20:02] LABS: Troponin I Less than 0.010 ng/mL (< 0.028)
[2022-09-20] MEDS: Atorvastatin Calcium 40 MG TAB PO SCH (20:59)
[2022-09-20] MEDS: Gabapentin 300 MG CAP PO SCH (20:59)
[2022-09-20] MEDS: Famotidine 20 MG TAB PO SCH (21:00)
[2022-09-20] MEDS: Carvedilol 25 MG TAB PO SCH (21:00)
[2022-09-20] MEDS: Oxybutynin 5 MG TAB PO SCH (21:00)
[2022-09-20] MEDS: cloNIDine 0.3 MG TAB PO SCH (21:01)
[2022-09-20] MEDS: hydrALAZINE 25 MG TAB PO SCH (21:01)
[2022-09-21 06:04] LABS: ALT (SGPT) 11 U/L (8-55); AST (SGOT) 16 U/L (5-34); Albumin 3.9 g/dL (3.5-5.0); Alkaline Phosphatase 86 U/L (40-110); Anion Gap 13 mmol/L (10-20); BUN (Urea Nitrogen) 14 mg/dL (9.8-20.1); Bilirubin, Total 0.6 mg/dL (0.2-1.2); Calc. Creatinine Clearance 104 mL/min (70-130); Calcium 9.4 mg/dL (7.8-10.44); Carbon Dioxide 29 mmol/L (22-29); Chloride 100 mmol/L (98-107); Estimated GFR 50; Globulin 4.6 g/dL (2.4-3.5); Glucose 86 mg/dL (70-105); Potassium 4.1 mmol/L (3.5-5.1); Protein, Total 8.5 g/dL (6.0-8.3); Sodium 138 mmol/L (136-145)
[2022-09-21] MEDS: Ipratropium Bromide 2.5 ml Neb NEB SCH ×4 (06:30→18:43)
[2022-09-21] MEDS ORDERED: Acetaminophen 500 MG TAB PO SCH (06:45)
[2022-09-21] MEDS: Venlafaxine HCl XR 75 MG CAP PO SCH (08:29)
[2022-09-21] MEDS: Gabapentin 300 MG CAP PO SCH ×3 (08:29→20:15)
[2022-09-21] MEDS: Carvedilol 25 MG TAB PO SCH ×2 (08:30→22:45)
[2022-09-21] MEDS: Oxybutynin 5 MG TAB PO SCH ×2 (08:30→20:15)
[2022-09-21] MEDS: hydrALAZINE 25 MG TAB PO SCH ×3 (08:30→22:45)
[2022-09-21] MEDS: Minoxidil 10 MG TAB PO SCH (08:31)
[2022-09-21 12:32] LABS: #Eosinphils 0.1 thou/uL (0.0-0.7); #Monocytes 0.4 thou/uL (0.11-0.59); #Neutrophils 3.4 thou/uL (1.40-6.50); %Basophils 0.5 % (0.0-1.0); %Eosinophils 1.5 % (0.0-10.0); %Lymphocytes 33.8 % (21.0-51.0); %Monocytes 7.4 % (0.0-10.0); %Neutrophils 56.8 % (42.0-75.0); Hemoglobin 13.1 g/dL (12.0-16.0); Mean Corpuscular HGB CONC 31.9 g/dL (32.0-36.0); Mean Corpuscular Hemoglobin 29.6 pg (27.0-31.0); Mean Corpuscular Volume 92.7 fl (78.0-98.0); Mean Platelet Volume 8.5 fL (7.4-10.4); Platelet Count 271 10x3/uL (130-400); RBC Distribution Width 12.7 % (11.5-14.5); Red Blood Cell (RBC) Count 4.42 mill/uL (4.20-5.40)
[2022-09-21] MEDS ORDERED: Acetaminophen 325 MG TAB PO PRN (16:46)
[2022-09-21] MEDS ORDERED: Ondansetron ODT 4 MG TAB PO PRN (17:36)
[2022-09-21] MEDS: Atorvastatin Calcium 40 MG TAB PO SCH (20:15)
[2022-09-21] MEDS: Famotidine 20 MG TAB PO SCH (20:15)
[2022-09-21] MEDS ORDERED: Benzonatate 100 MG CAP PO PRN (21:14)
[2022-09-21] MEDS: cloNIDine 0.3 MG TAB PO SCH (22:45)
[2022-09-22] MEDS: Ipratropium Bromide 2.5 ml Neb NEB SCH ×4 (06:33→19:07)
[2022-09-22] MEDS: Oxybutynin 5 MG TAB PO SCH ×2 (08:55→20:19)
[2022-09-22] MEDS: Venlafaxine HCl XR 75 MG CAP PO SCH (08:55)
[2022-09-22] MEDS: Gabapentin 300 MG CAP PO SCH ×3 (08:55→20:19)
[2022-09-22] MEDS: Carvedilol 25 MG TAB PO SCH ×2 (08:56→20:07)
[2022-09-22] MEDS: Minoxidil 10 MG TAB PO SCH (08:56)
[2022-09-22] MEDS: hydrALAZINE 25 MG TAB PO SCH ×3 (08:56→20:07)
[2022-09-22] MEDS: guaiFENesin 200 MG TAB PO SCH ×4 (09:11→20:20)
[2022-09-22] MEDS ORDERED: predniSONE 20 MG TAB PO SCH (13:30)
[2022-09-22 15:44] LABS: ANA Symphony (Qualitative) Negative (Negative); ANA Symphony (Quantitative) 0.4 Ratio (< 0.7 Negative); dsDNA IgG Antibody 1.7 IU/mL (<10 Negative)
[2022-09-22] MEDS: Mometasone 100 MCG/Formoterol 5 MCG 120 PUFF INHALER INH SCH (19:17)
[2022-09-22] MEDS: cloNIDine 0.3 MG TAB PO SCH (20:07)
[2022-09-22] MEDS: Atorvastatin Calcium 40 MG TAB PO SCH (20:18)
[2022-09-23] MEDS: guaiFENesin 200 MG TAB PO SCH ×6 (04:32→21:31)
[2022-09-23] MEDS: Mometasone 100 MCG/Formoterol 5 MCG 120 PUFF INHALER INH SCH ×2 (06:36→18:47)
[2022-09-23] MEDS: Ipratropium Bromide 2.5 ml Neb NEB SCH ×4 (06:41→18:35)
[2022-09-23 07:29] LABS: #Lymphocytes 1.9 thou/uL (1.20-3.40); #Monocytes 0.4 thou/uL (0.11-0.59); #Neutrophils 3.8 thou/uL (1.40-6.50); %Basophils 0.5 % (0.0-1.0); %Eosinophils 0.5 % (0.0-10.0); %Lymphocytes 30.7 % (21.0-51.0); %Monocytes 5.9 % (0.0-10.0); %Neutrophils 62.5 % (42.0-75.0); Hemoglobin 12.6 g/dL (12.0-16.0); Mean Corpuscular HGB CONC 30.7 g/dL (32.0-36.0); Mean Corpuscular Hemoglobin 28.8 pg (27.0-31.0); Mean Corpuscular Volume 93.8 fl (78.0-98.0); Platelet Count 285 10x3/uL (130-400); RBC Distribution Width 12.3 % (11.5-14.5); Red Blood Cell (RBC) Count 4.37 mill/uL (4.20-5.40); White Blood Cell (WBC) Count 6.1 10x3/uL (4.8-10.8)
[2022-09-23 08:02] LABS: ALT (SGPT) 10 U/L (8-55); AST (SGOT) 11 U/L (5-34); Albumin 3.7 g/dL (3.5-5.0); Alkaline Phosphatase 74 U/L (40-110); Anion Gap 10 mmol/L (10-20); BUN (Urea Nitrogen) 18 mg/dL (9.8-20.1); Bilirubin, Total 0.5 mg/dL (0.2-1.2); Calc. Creatinine Clearance 108 mL/min (70-130); Calcium 9.4 mg/dL (7.8-10.44); Carbon Dioxide 33 mmol/L (22-29); Chloride 96 mmol/L (98-107); Estimated GFR 52; Globulin 4.3 g/dL (2.4-3.5); Glucose 85 mg/dL (70-105); Potassium 4.3 mmol/L (3.5-5.1); Sodium 135 mmol/L (136-145)
[2022-09-23] MEDS ORDERED: FLU VACC QS2022-23(6MOS UP)/PF 60 MCG/0.5 ML SYRINGE IM ONE (09:00)
[2022-09-23] MEDS: predniSONE 5 MG TAB PO SCH (09:20)
[2022-09-23] MEDS: Oxybutynin 5 MG TAB PO SCH ×2 (09:21→21:28)
[2022-09-23] MEDS: Gabapentin 300 MG CAP PO SCH ×3 (09:21→21:28)
[2022-09-23] MEDS: hydrALAZINE 25 MG TAB PO SCH (09:21)
[2022-09-23] MEDS: Carvedilol 25 MG TAB PO SCH ×2 (09:21→21:27)
[2022-09-23] MEDS: Minoxidil 10 MG TAB PO SCH (09:23)
[2022-09-23] MEDS: Venlafaxine HCl XR 75 MG CAP PO SCH (09:24)
[2022-09-23] MEDS: Atorvastatin Calcium 40 MG TAB PO SCH (21:27)
[2022-09-24] MEDS: guaiFENesin 200 MG TAB PO SCH ×6 (01:33→22:04)
[2022-09-24 05:37] LABS: #Lymphocytes 2.3 thou/uL (1.20-3.40); #Monocytes 0.4 thou/uL (0.11-0.59); #Neutrophils 2.5 thou/uL (1.40-6.50); %Basophils 0.5 % (0.0-1.0); %Eosinophils 0.6 % (0.0-10.0); %Lymphocytes 43.5 % (21.0-51.0); %Monocytes 7.1 % (0.0-10.0); %Neutrophils 48.2 % (42.0-75.0); Hemoglobin 12.6 g/dL (12.0-16.0); Mean Corpuscular HGB CONC 31.1 g/dL (32.0-36.0); Mean Corpuscular Hemoglobin 29.1 pg (27.0-31.0); Mean Corpuscular Volume 93.3 fl (78.0-98.0); Mean Platelet Volume 8.6 fL (7.4-10.4); Platelet Count 248 10x3/uL (130-400); RBC Distribution Width 12.4 % (11.5-14.5); Red Blood Cell (RBC) Count 4.34 mill/uL (4.20-5.40); White Blood Cell (WBC) Count 5.3 10x3/uL (4.8-10.8)
[2022-09-24 06:05] LABS: ALT (SGPT) 8 U/L (8-55); AST (SGOT) 12 U/L (5-34); Albumin 3.5 g/dL (3.5-5.0); Alkaline Phosphatase 71 U/L (40-110); Anion Gap 12 mmol/L (10-20); BUN (Urea Nitrogen) 18 mg/dL (9.8-20.1); Bilirubin, Total 0.5 mg/dL (0.2-1.2); Calc. Creatinine Clearance 115 mL/min (70-130); Carbon Dioxide 27 mmol/L (22-29); Chloride 100 mmol/L (98-107); Estimated GFR 55; Glucose 80 mg/dL (70-105); Potassium 4.3 mmol/L (3.5-5.1); Protein, Total 7.5 g/dL (6.0-8.3); Sodium 135 mmol/L (136-145)
[2022-09-24] MEDS: Ipratropium Bromide 2.5 ml Neb NEB SCH ×4 (08:00→19:25)
[2022-09-24] MEDS: predniSONE 5 MG TAB PO SCH (08:15)
[2022-09-24] MEDS: Mometasone 100 MCG/Formoterol 5 MCG 120 PUFF INHALER INH SCH ×2 (08:34→19:25)
[2022-09-24] MEDS: Carvedilol 25 MG TAB PO SCH ×2 (08:57→22:05)
[2022-09-24] MEDS: Gabapentin 300 MG CAP PO SCH ×3 (08:58→22:04)
[2022-09-24] MEDS: Oxybutynin 5 MG TAB PO SCH ×2 (08:59→22:04)
[2022-09-24] MEDS: Minoxidil 10 MG TAB PO SCH (08:59)
[2022-09-24] MEDS: Venlafaxine HCl XR 75 MG CAP PO SCH (09:00)
[2022-09-24] MEDS: hydrALAZINE 25 MG TAB PO SCH ×2 (15:14→21:59)
[2022-09-24] MEDS: cloNIDine 0.3 MG TAB PO SCH (21:59)
[2022-09-24] MEDS: Atorvastatin Calcium 40 MG TAB PO SCH (22:04)
[2022-09-25] MEDS: guaiFENesin 200 MG TAB PO SCH ×4 (00:44→13:07)
[2022-09-25] MEDS: Ipratropium Bromide 2.5 ml Neb NEB SCH ×3 (07:26→14:17)
[2022-09-25] MEDS: Mometasone 100 MCG/Formoterol 5 MCG 120 PUFF INHALER INH SCH (07:26)
[2022-09-25 08:28] VITALS: TEMP 98.6
[2022-09-25] MEDS: Carvedilol 25 MG TAB PO SCH (09:24)
[2022-09-25] MEDS: predniSONE 5 MG TAB PO SCH (09:24)
[2022-09-25] MEDS: Gabapentin 300 MG CAP PO SCH ×2 (09:25→16:13)
[2022-09-25] MEDS: hydrALAZINE 25 MG TAB PO SCH ×2 (09:27→16:14)
[2022-09-25] MEDS: Minoxidil 10 MG TAB PO SCH (09:29)
[2022-09-25] MEDS: Oxybutynin 5 MG TAB PO SCH (09:29)
[2022-09-25] MEDS: Venlafaxine HCl XR 75 MG CAP PO SCH (09:30)
[2022-09-25 11:58] VITALS: BP 119/52
== END 2022-09-25 16:43 | disposition home health service (06) | DRG 314 ==
LOC: ERS 11:48 → 2SW 16:21
PROVIDERS: ADMIT Student in an Organized Health Care Education/Training Program; ATTEND Student in an Organized Health Care Education/Training Program
DX: I31.39 Other pericardial effusion (noninflammatory) (principal); J96.01 Acute respiratory failure with hypoxia; Z68.43 Body mass index [BMI] 50.0-59.9, adult; E66.2 Morbid (severe) obesity with alveolar hypoventilation; I25.10 Atherosclerotic heart disease of native coronary artery without angina pectoris; I12.9 Hypertensive chronic kidney disease with stage 1 through stage 4 chronic kidney disease, or unspecified chronic kidney disease; Z20.822 Contact with and (suspected) exposure to COVID-19; N18.30 Chronic kidney disease, stage 3 unspecified; R33.9 Retention of urine, unspecified; E11.22 Type 2 diabetes mellitus with diabetic chronic kidney disease; J44.9 Chronic obstructive pulmonary disease, unspecified; K21.9 Gastro-esophageal reflux disease without esophagitis; Z96.653 Presence of artificial knee joint, bilateral; Z79.51 Long term (current) use of inhaled steroids; Z79.899 Other long term (current) drug therapy; Z99.89 Dependence on other enabling machines and devices
CPT/HCPCS: 36415; 71045; 71275; 80053; 81003; 81015; 82805; 83690; 83735; 83880; 84145; 84443; 84484; 85025; 85652; 86038; 86225; 87040; 87389; 87633; 93005; 93306; 94640; 94660; 96374; J1650; J1940; J7512; J7620; Q0162; Q9967

== ENCOUNTER 2023-11-28 10:55 | Inpatient (IN) | payer OTHER, MEDICAID ==
[2023-11-28 11:31] LABS: #Basophils 0.06 10x3/uL (0.0-0.2); %Basophils 0.7 % (0.0-1.0); %Eosinophils 2.1 % (0.0-10.0); %Monocytes 6.4 % (0.0-10.0); %Neutrophils 64.6 % (42.0-75.0); Hematocrit 38.9 % (36.0-47.0); Hemoglobin 11.6 g/dL (12.0-16.0); Mean Corpuscular HGB CONC 29.8 g/dL (32.0-36.0); Mean Corpuscular Hemoglobin 28.9 pg (27.0-31.0); Mean Corpuscular Volume 96.8 fL (78.0-98.0); Mean Platelet Volume 10.3 fL (7.4-10.4); Platelet Count 233 10x3/uL (130-400); RBC Distribution Width 13.3 % (11.5-14.5); Red Blood Cell (RBC) Count 4.02 mill/uL (4.20-5.40)
[2023-11-28 11:47] LABS: ALT (SGPT) 14 U/L (8-55); AST (SGOT) 12 U/L (5-34); Albumin 3.1 g/dL (3.5-5.0); Alkaline Phosphatase 65 U/L (40-110); Anion Gap 11 mmol/L (10-20); BUN (Urea Nitrogen) 10 mg/dL (9.8-20.1); Bilirubin, Total 0.4 mg/dL (0.2-1.2); Calc. Creatinine Clearance 0 mL/min (70-130); Calcium 9.5 mg/dL (7.8-10.44); Carbon Dioxide 40 mmol/L (22-29); Chloride 99 mmol/L (98-107); Estimated GFR 76; Globulin 4.2 g/dL (2.4-3.5); Glucose 89 mg/dL (70-105); Potassium 4.1 mmol/L (3.5-5.1); Protein, Total 7.3 g/dL (6.0-8.3); Sodium 146 mmol/L (136-145)
[2023-11-28 11:52] LABS: Troponin I 0.013 ng/mL (< 0.028)
[2023-11-28] MEDS ORDERED: Ipratropium/Albuterol 3 ML NEB ONE (12:20)
[2023-11-28] MEDS ORDERED: Senokot S 8.6-50 MG TAB PO PRN (15:17)
[2023-11-28] MEDS ORDERED: Ondansetron ODT 4 MG TAB PO PRN (15:17)
[2023-11-28] MEDS ORDERED: Preparation H Suppository PR PRN (15:29)
[2023-11-28] MEDS ORDERED: Preparation H Ointment 57 gram tube TOP PRN (15:29)
[2023-11-28] MEDS ORDERED: Pantoprazole DR 40 MG TAB PO SCH (15:30)
[2023-11-28] MEDS ORDERED: Dextrose 5% in Water 1,000 ML IV PRN (15:31)
[2023-11-28] MEDS ORDERED: Dextrose 50% Abboject 50 ML SYRINGE SLOW IVP PRN (15:31)
[2023-11-28] MEDS ORDERED: Insulin Regular 300 UNITS/3 ML VIAL SC PRN ×2 (15:31)
[2023-11-28] MEDS ORDERED: Glucagon 1 MG/ML KIT IM PRN (15:31)
[2023-11-28] MEDS ORDERED: hydrALAZINE 20 MG/ML VIAL SLOW IVP PRN (15:35)
[2023-11-28] MEDS ORDERED: traZODone HCl 50 MG TAB PO PRN (15:36)
[2023-11-28] MEDS ORDERED: Ipratropium/Albuterol 3 ML NEB NEB PRN (15:36)
[2023-11-28] MEDS ORDERED: Labetalol HCl 100 MG/20 ML VIAL SLOW IVP PRN (15:38)
[2023-11-28] MEDS ORDERED: hydrOXYzine 25 MG TAB PO PRN (15:40)
[2023-11-28] MEDS ORDERED: IPRATROPIUM INH SCH (17:00)
[2023-11-28] MEDS ORDERED: Ipratropium/Albuterol 3 ML NEB NEB SCH ×2 (17:00→19:00)
[2023-11-28 17:49] VITALS: BMI 55.8
[2023-11-28] MEDS: cefTRIAXone\\ROCEPHIN 2 GM in Sodium Chloride 0.9% 100 ML IVPB SCH (18:06)
[2023-11-28] MEDS: cefTRIAXone\\ROCEPHIN 1 GM in Sodium Chloride 0.9% 100 ML IVPB SCH (18:17)
[2023-11-28] MEDS: Ipratropium/Albuterol 3 ML NEB NEB SCH (18:33)
[2023-11-28] MEDS: Mometasone 100 MCG/Formoterol 5 MCG 120 PUFF INHALER INH SCH (18:34)
[2023-11-28 19:18] LABS: Influenza A by NAA Not Detected (NotDetected); Influenza B by NAA Not Detected (NotDetected); RSV by NAA Not Detected (NotDetected); SARS-CoV-2 NAA Rapid Test Not Detected (NotDetected)
[2023-11-28] MEDS: Guaifenesin DM 100-10/5 ML UDCUP PO PRN (19:40)
[2023-11-28] MEDS: Gabapentin 300 MG CAP PO SCH (20:34)
[2023-11-28] MEDS: hydrALAZINE 25 MG TAB PO SCH (20:35)
[2023-11-28] MEDS: Oxybutynin 5 MG TAB PO SCH (20:35)
[2023-11-28] MEDS: Atorvastatin Calcium 40 MG TAB PO SCH (20:35)
[2023-11-28] MEDS: Pantoprazole DR 40 MG TAB PO SCH (20:36)
[2023-11-28] MEDS: Enoxaparin 40 MG (0.4 mL) SYRINGE SC SCH (20:38)
[2023-11-28] MEDS: hydrALAZINE 20 MG/ML VIAL SLOW IVP PRN (22:35)
[2023-11-29 06:24] LABS: #Basophils 0.04 10x3/uL (0.0-0.2); %Basophils 0.7 % (0.0-1.0); %Eosinophils 2.1 % (0.0-10.0); %Lymphocytes 33.1 % (21.0-51.0); %Monocytes 8.2 % (0.0-10.0); %Neutrophils 55.2 % (42.0-75.0); Hematocrit 38.5 % (36.0-47.0); Hemoglobin 11.8 g/dL (12.0-16.0); Mean Corpuscular HGB CONC 30.6 g/dL (32.0-36.0); Mean Corpuscular Hemoglobin 28.9 pg (27.0-31.0); Mean Corpuscular Volume 94.1 fL (78.0-98.0); Mean Platelet Volume 11.5 fL (7.4-10.4); Platelet Count 141 10x3/uL (130-400); RBC Distribution Width 13.6 % (11.5-14.5); Red Blood Cell (RBC) Count 4.09 mill/uL (4.20-5.40)
[2023-11-29 06:44] LABS: Anion Gap 14 mmol/L (10-20); BUN (Urea Nitrogen) 9 mg/dL (9.8-20.1); Calc. Creatinine Clearance 169 mL/min (70-130); Calcium 9.6 mg/dL (7.8-10.44); Carbon Dioxide 33 mmol/L (22-29); Chloride 101 mmol/L (98-107); Estimated GFR 84; Glucose 82 mg/dL (70-105); Potassium 4.5 mmol/L (3.5-5.1); Sodium 143 mmol/L (136-145)
[2023-11-29] MEDS ORDERED: Enoxaparin 40 MG (0.4 mL) SYRINGE SC SCH (09:00)
[2023-11-29] MEDS ORDERED: Pantoprazole DR 40 MG TAB PO SCH (09:00)
[2023-11-29] MEDS: predniSONE 20 MG TAB PO SCH (09:38)
[2023-11-29] MEDS: cloNIDine 0.3 MG TAB PO SCH (09:39)
[2023-11-29] MEDS: Minoxidil 10 MG TAB PO SCH (09:39)
[2023-11-29] MEDS: Venlafaxine HCl XR 75 MG CAP PO SCH (09:39)
[2023-11-29 13:16] VITALS: BP 164/94
[2023-11-30 08:45] VITALS: TEMP 98.2
== END 2023-11-30 12:00 | disposition home or self-care (01) | DRG 189 ==
LOC: ERS 10:55 → IMCU/EMU 15:27
PROVIDERS: ADMIT Family Medicine; ATTEND Family Medicine
PROC: 5A09357 Assistance with Respiratory Ventilation, Less than 24 Consecutive Hours, Continuous Positive Airway Pressure (ICD-10-PCS; principal; 2023-11-29)
DX: J96.21 Acute and chronic respiratory failure with hypoxia (principal); J44.1 Chronic obstructive pulmonary disease with (acute) exacerbation; J98.11 Atelectasis; E87.29 Other acidosis; E87.3 Alkalosis; E87.0 Hyperosmolality and hypernatremia; K62.5 Hemorrhage of anus and rectum; I31.39 Other pericardial effusion (noninflammatory); Z68.43 Body mass index [BMI] 50.0-59.9, adult; H53.8 Other visual disturbances; R19.7 Diarrhea, unspecified; J32.9 Chronic sinusitis, unspecified; E66.01 Morbid (severe) obesity due to excess calories; F41.8 Other specified anxiety disorders; G89.29 Other chronic pain; M19.90 Unspecified osteoarthritis, unspecified site; F32.9 Major depressive disorder, single episode, unspecified; E78.5 Hyperlipidemia, unspecified; N18.30 Chronic kidney disease, stage 3 unspecified; I12.9 Hypertensive chronic kidney disease with stage 1 through stage 4 chronic kidney disease, or unspecified chronic kidney disease; G47.33 Obstructive sleep apnea (adult) (pediatric); Z96.653 Presence of artificial knee joint, bilateral; Z96.612 Presence of left artificial shoulder joint; D63.1 Anemia in chronic kidney disease; H66.91 Otitis media, unspecified, right ear; K64.9 Unspecified hemorrhoids; R73.03 Prediabetes; M48.00 Spinal stenosis, site unspecified; Z90.49 Acquired absence of other specified parts of digestive tract; Z91.199 Patient's noncompliance with other medical treatment and regimen due to unspecified reason
CPT/HCPCS: 0241U; 36415; 36416; 71045; 80048; 80053; 83880; 84145; 84484; 85025; 87081; 93005; 94640; 94660; J0360; J0696; J1650; J3490; J7512; J7620